=== PATIENT | female | born 1970 | race Caucasian/White ===

== ENCOUNTER → 2021-01-17 09:50 | Outpatient (BNVA) | payer OTHER, SELFPAY | PROVIDERS: PCP Internal Medicine; Visit Provider Internal Medicine Pulmonary Disease | DX: R06.00 Dyspnea, unspecified (principal); J44.9 Chronic obstructive pulmonary disease, unspecified; Z79.899 Other long term (current) drug therapy | CPT/HCPCS: 99212 ==

== ENCOUNTER → 2021-01-30 09:19 | Outpatient (REF) | payer OTHER, SELFPAY ==
--- NOTE | 2021-01-30 09:24 | CA_ITS ---
Transthoracic Echocardiogram Patient (Last, First, Middle): Torrie Townsend M Gender: Female Date of : 1970 Age: 50 Procedure Date: 01/30/2021 Procedure Type: Transthoracic Echocardiogram Location: OP Height: 170.18 cm Weight: 95.26 kg BSA: 2.06 m2 Heart Rate: bpm BP: 140 / 90 mmHg Library Director: COLLEEN Referring MD: José Miguel Landaverde MD Customs Brokerage Agent: Russ Hauser MD Symptoms: R06.00 - Dyspnea, unspecified Study Quality: Fair ECG Rhythm: Sinus Conclusions: - 1. Mildly reduced LV systolic function with LVEF of 45-50% with impaired relaxation filling pattern 2. Normal cardiac valvular Doppler 3. No gross pericardial effusion Findings Left Ventricle Normal left ventricular cavity size. There is normal left ventricular wall thickness. The left ventricular systolic function is mildly decreased. The visually estimated ejection fraction is between 45-50%. Spectral Doppler is indicative of an impaired relaxation filling pattern. E/E prime ratio is between 8 and 15 consistent with indeterminate filling pressures. Right Ventricle Normal right ventricular cavity size and systolic function. Atria Both atria are normal in size. There is lipomatous hypertrophy of the interatrial septum. There is no evidence of interatrial shunt. Aortic Valve The aortic valve structure and function is likely normal. There is no aortic valve stenosis. There is no aortic valve regurgitation. Mitral Valve Likely normal mitral valve structure and function. There is trace mitral valve regurgitation. There is no mitral valve stenosis. Pulmonic Valve The pulmonic valve was not well visualized. Tricuspid Valve The tricuspid valve was not well visualized. Tricuspid regurgitation envelope is inadequate for calculation of right ventricular systolic pressure. Great Vessels All visible segments of the aorta are normal in size. The pulmonary artery was not well visualized. Venous The inferior vena cava is normal in size and collapses greater than 50% with inspiration. Pericardium/Pleural There is no evidence of pericardial effusion. Prior Study Comparison No prior study available for comparison. Measurements M-Mode Liner Measurements Normals - Women/Men AOV Cusps: 1.90 1.5-2.6 cm/m2 2D Linear Measurements IVSd: 0.79 0.6-0.9/0.6-1.0 cm LVIDd: 5.12 3.9-5.3/4.2-5.9 cm LVIDd Index: 2.49 2.4-3.2/2.2-3.1 cm/m2 LVIDs: 3.45 2.0-3.6 cm LVPWd: 0.78 0.7-1.1 cm Ao Root: 2.90 2.1-3.5 cm LA Diam: 3.40 2.7-3.8/3.0-4.0 cm LAIDs Index: 1.65 1.5-2.3 cm/m2 LV Mass: 171.81 67-162/88-224 g LV Mass Index: 83.40 43-95/49-115 g/m2 LVOT Diam: 2.10 3.0+(-)1.3 cm 2D Systolic Function EF 4C: 50.20 >55% EF 2C: 51.50 >55% EF BiP: 49.80 >55% Mitral Valve MV Pk E: 0.69 MV PK A: 0.74 MV Decel Time: 127.00 E/A: 0.90 E'Lateral: 7.51 E'Medial: 5.11 E/E' Med: 13.50 E/E' Lat: 9.20 PHT: 37.00 MVA PHT: 5.95 Decel [place]: 5.46 Aortic Valve AoV Pk Noman: 0.96 AoV Mn Noman: 0.71 AoV VTI: 0.19 AoV Pk Grad: 4.00 Aov Mn Grad: 2.00 DEMETRIUS Cont.VTI: 2.81 LVOT LVOT Pk Noman: 0.78 LVOT Mn Noman: 0.54 LVOT VTI: 0.16 LVOT Pk Grad: 2.00 LVOT Mn Grad: 1.00 LVOT Diam: 2.10 LVOT Area: 3.46 Diastolic Function MV Pk E: 0.69 MV Pk A: 0.74 E/A: 0.90 E'Medial: 5.11 E/E' Med: 13.50 E' Laterial: 7.51 E/E' Lat: 9.20 Tricuspid Valve RA Press: 3.00 Great Vessels Aorta Ao Root-2D: 2.90 2.0-3.7 cm Ao Asc: 2.90 2.1-3.4 cm Pulmonary Valve PV Pk Noman: 0.90 Peak PV Grad: 3.00 Updated in Other Vendor System with Status of Final Russ Hauser MD electronically signed on 01/30/2021 10:22:10 AM with status of Final
== END ==
LOC: HO.CARD 09:19
PROVIDERS: PCP Internal Medicine; Visit Provider Internal Medicine Pulmonary Disease
DX: R06.00 Dyspnea, unspecified (principal)
CPT/HCPCS: 93306

== ENCOUNTER → 2021-02-06 09:06 | Outpatient (BNVA) | payer OTHER, SELFPAY | PROVIDERS: PCP Physician Assistant Medical; Visit Provider Internal Medicine Pulmonary Disease | DX: J44.9 Chronic obstructive pulmonary disease, unspecified (principal); I50.9 Heart failure, unspecified; R06.00 Dyspnea, unspecified | CPT/HCPCS: 99212 ==

== ENCOUNTER 2021-02-25 13:06 | Outpatient (REF) | payer OTHER, SELFPAY ==
[2021-02-25 14:23] LABS: Hemoglobin 14.9 g/dl (12.0-16.0); Mean Corpuscular HGB Conc 32.4 g/dl (31.0-35.0); Mean Corpuscular Hemoglobin 30.9 pg (27.0-33.0); Mean Corpuscular Volume 95.4 fL (80-98); Mean Platelet Volume 8.9 fL (9.4-12.3); Platelet Count 267 X10*3/uL (160-400); Red Blood Count 4.82 X10*6/uL (4.20-5.50); Red Cell Distribution Width 14.2 % (11.0-16.0); White Blood Count 14.5 X10*3/uL (4.8-10.8)
[2021-02-25 14:53] LABS: Prothrombin Time 11.1 SEC (9.9-13.0)
[2021-02-25 14:57] LABS: Anion Gap 12 (12-20); Blood Urea Nitrogen 10 mg/dL (9-16); Calcium 10.2 mg/dL (8.4-10.2); Carbon Dioxide 29 mmol/L (22-29); Chloride 102 mmol/L (96-108); Estimated Glomerular Filt Rate > 60; Glucose Random 94 mg/dL (60-115); Potassium 4.4 mmol/L (3.3-5.1); Sodium 139 mmol/L (135-145)
== END 2021-02-25 13:07 | disposition home or self-care (01) ==
LOC: HO.LAB 13:06
PROVIDERS: PCP Physician Assistant Medical; Referring Provider Internal Medicine Pulmonary Disease; Visit Provider Internal Medicine Cardiovascular Disease
DX: J44.9 Chronic obstructive pulmonary disease, unspecified (principal); F17.210 Nicotine dependence, cigarettes, uncomplicated; Z79.899 Other long term (current) drug therapy
CPT/HCPCS: 36415; 80048; 85027; 85610; 93005; 99202

== ENCOUNTER → 2021-03-18 09:43 | Outpatient (BNVA) | payer OTHER, SELFPAY | PROVIDERS: PCP Physician Assistant Medical; Visit Provider Internal Medicine Pulmonary Disease ==

== ENCOUNTER → 2021-04-07 13:02 | Outpatient (BNVA) | payer OTHER, SELFPAY | PROVIDERS: PCP Physician Assistant Medical; Referring Provider Physician Assistant Medical; Visit Provider Internal Medicine Cardiovascular Disease | DX: J44.9 Chronic obstructive pulmonary disease, unspecified (principal); R06.00 Dyspnea, unspecified | CPT/HCPCS: 99212 ==

== ENCOUNTER → 2021-05-20 15:38 | Outpatient (BNVA) | payer OTHER, SELFPAY | PROVIDERS: PCP Physician Assistant Medical; Visit Provider Internal Medicine Pulmonary Disease | DX: J44.9 Chronic obstructive pulmonary disease, unspecified (principal); Z99.81 Dependence on supplemental oxygen | CPT/HCPCS: 99212 ==

== ENCOUNTER 2021-05-20 16:06 | Inpatient (IN) | payer OTHER, SELFPAY ==
--- NOTE | ~2021-05-20 | XR_ITS ---
EXAMINATION: XR CHEST CLINICAL INFORMATION: Dyspnea COMPARISON: Chest 04/27/2009 TECHNIQUE: Frontal view of the chest was obtained. FINDINGS: The lungs are expanded with mild blunting of left CP angle and patchy opacity left lung base suggestive of infiltrate/scarring or atelectasis. Rest of lungs are clear. The heart size and pulmonary vascularity is normal. No gross bony abnormality seen. XR/XR chest 1V IMPRESSION: Expanded lungs with patchy infiltrate/atelectasis or scarring left lung base. These findings are new since 2008.
--- NOTE | ~2021-05-20 | CT_ITS ---
EXAMINATION: CT ANGIOGRAM OF THE CHEST WITH AND WITHOUT CONTRAST (CT PULMONARY ANGIOGRAM FOR PE) CLINICAL INFORMATION: Reason for Exam worsening SOB. r/o PE COMPARISON: Chest x-ray May 20, 2021 TECHNIQUE: Prior to contrast administration, noncontrast localization images were obtained. Subsequently, multidetector volumetric imaging was performed from the thoracic inlet to below the diaphragms following the administration of 71 mL Omnipaque 350 intravenous contrast. No contrast reaction reported Sagittal, coronal, and MIP oblique sagittal reformatted images were obtained on the CT workstation, uploaded to PACS, and reviewed. This CT examination was performed using dose optimization techniques as appropriate, variously including the following: *Automated exposure control *Adjustment of mA and/or kV according to patient size (this includes techniques or standardized protocols for targeted exams where dose is matched to indication/reason for exam; i.e. extremities or head) *Use of iterative reconstruction technique Total exam dose-length product 356 mGy-cm FINDINGS: QUALITY OF STUDY/CONTRAST BOLUS: Satisfactory. PULMONARY ARTERIES: No central or segmental pulmonary emboli. THORACIC AORTA: No aneurysm or dissection. LUNG: Patchy airspace opacities at the left lung base. Right lung is normally aerated. No suspicious lung nodules. PLEURA: No pleural effusion or pneumothorax. MEDIASTINUM: Normal heart size. No pericardial effusion. No hilar or mediastinal lymphadenopathy. No evidence of septal bowing or right heart strain. CHEST WALL/AXILLA: No axillary or internal mammary lymphadenopathy. OSSEOUS STRUCTURES: No acute or suspicious osseous abnormality. Multilevel degenerative spondylosis of the dorsal spine. UPPER ABDOMEN: Unremarkable. No reflux of contrast into the hepatic veins to suggest elevated right heart pressures. CT/CT angio chest PE protocol IMPRESSION: 1. No evidence of pulmonary embolism. 2. Patchy pleural-parenchymal airspace opacities in the left lower lobe. VTE: negative
[2021-05-20 16:19] VITALS: BP 146/99; PULSE 96; RESP 22; TEMP 36.9; O2SAT 98; BMI 32.8
--- NOTE | 2021-05-20 16:25 | ECG_ITS ---
Test Reason : DYSPNEA Blood Pressure : / mmHG Vent. Rate : 087 BPM Atrial Rate : 087 BPM P-R Int : 170 ms QRS Dur : 086 ms QT Int : 370 ms P-R-T Axes : 061 051 026 degrees QTc Int : 445 ms Poor data quality Normal sinus rhythm Nonspecific ST abnormality Abnormal ECG Heart rate has increased Referred By: Generic ED Physician Electronically Signed By:RAYO SALTER MD
[2021-05-20 16:55] LABS: MANUAL DIFF FLAG NO
[2021-05-20 16:59] LABS: Basophils Absolute Auto 0.1 X10*3/uL (0.0-0.2); Basophils Percent Auto 0.4 % (0-2); Eosinophils Absolute Auto 0.1 X10*3/uL (0.0-0.4); Eosinophils Percent Auto 1.1 % (0-4); Hemoglobin 13.2 g/dl (12.0-16.0); Imm Gran Abs Auto 0.66 X10*3/uL (0.00-0.03); Lymphocytes Absolute Auto 4.1 X10*3/uL (1.2-4.9); Lymphocytes Percent Auto 30.9 % (20-40); Mean Corpuscular HGB Conc 32.2 g/dl (31.0-35.0); Mean Corpuscular Hemoglobin 30.9 pg (27.0-33.0); Mean Platelet Volume 9.3 fL (9.4-12.3); Monocytes Absolute Auto 0.9 X10*3/uL (0.1-1.2); Monocytes Percent Auto 6.8 % (2-11); Neutrophils Absolute Auto 7.3 X10*3/uL (2.0-8.3); Neutrophils Percent Auto 55.8 % (45-73); Platelet Count 392 X10*3/uL (160-400); Red Blood Count 4.27 X10*6/uL (4.20-5.50); Red Cell Distribution Width 13.8 % (11.0-16.0); White Blood Count 13.1 X10*3/uL (4.8-10.8)
[2021-05-20 17:12] LABS: Anion Gap 13 (12-20); Blood Urea Nitrogen 19 mg/dL (9-16); Calcium 9.4 mg/dL (8.4-10.2); Carbon Dioxide 26 mmol/L (22-29); Chloride 103 mmol/L (96-108); Creatinine Clr Calc Pharmacy 98.3; Estimated Glomerular Filt Rate > 60; Glucose Random 87 mg/dL (60-115); Potassium 4.3 mmol/L (3.3-5.1); Sodium 138 mmol/L (135-145)
[2021-05-20] MEDS: Albuterol/Iprat 2.5/0.5MG 3 ML AMPUL.NEB INHALE ×3 (17:16→20:14)
[2021-05-20 17:17] VITALS: PULSE 84; O2SAT 97
[2021-05-20 17:18] LABS: B Type Natriuretic Peptide 25 pg/mL (<100); Troponin-I High Sensitivity 3.9 ng/L (<3.5-17.0)
--- NOTE | 2021-05-20 17:59 | ED_ITS ---
HPI - SOB/Dyspnea General Chief Complaint: Dyspnea Stated Complaint: SoB, Difficulty Breathing Time Seen by Provider: 05/20/21 16:45 Source: patient Mode of arrival: ambulatory History of Present Illness HPI Narrative: 51-year-old female with a past medical history of HIV, B12 deficiency, PTSD, seizures, spinal cord stimulator, 30+ pack-year smoking, dyspnea on exertion, COPD on chronic 3L NC, Recently discharged from [facility] for acute COPD exacerbation/pneumonia discharged on 4L NC, saw impregnation operator today and sent to ED for admission secondary to increased/worsening SOB. Patient reports increased dyspnea, SOB, nonproductive cough times multiple days, also reports near syncopal episode last night where got lightheaded secondary to coughing and hit head on dresser, denies LOC. Denies headache, nausea, vomiting, since incident. Denies taking anticoagulation. Denies fever, chills, abdominal pain, LE edema, calf pain, hi story of blood clots, CP Is not vaccinated for COVID-19 MD elicited complaint: shortness of breath and cough Related Data Home Medications Medication Instructions Recorded Confirmed aripiprazole 2 mg tablet 4 mg PO DAILY 01/17/21 05/20/21 [id number] 1 - 2 cap PO DAILY PRN 01/17/21 05/20/21 50 mg-325 mg-40 mg capsule clonazepam 1 mg tablet 1 mg PO TID PRN 01/17/21 05/20/21 divalproex 500 mg tablet,delayed 1,000 mg PO BID 01/17/21 05/20/21 release donepezil 5 mg tablet 5 mg PO BEDTIME 01/17/21 05/20/21 furosemide 20 mg tablet 20 mg PO DAILY PRN 01/17/21 05/20/21 gabapentin 800 mg tablet 800 mg PO TID 01/17/21 05/20/21 ipratropium 0.5 mg-albuterol 3 mg 3 ml INHALATION QID 01/17/21 05/20/21 (2.5 mg base)/3 mL nebulization soln naproxen 500 mg tablet 500 mg PO BID 01/17/21 05/20/21 omeprazole 20 mg capsule,delayed 20 mg PO DAILY@0630 01/17/21 05/20/21 release topiramate 100 mg tablet 100 mg PO BID 01/17/21 05/20/21 budesonide 3 mg 6 mg PO DAILY 05/20/21 05/20/21 capsule,delayed,extended release cyanocobalamin (vitamin B-12) 1,000 mcg IM QMONTH 05/20/21 05/20/21 1,000 mcg/mL injection solution duloxetine 60 mg capsule,delayed 1 cap PO DAILY 05/20/21 05/20/21 release elviteg 150 mg-cob 150 mg-emtricit 1 tab PO DAILY 05/20/21 05/20/21 200 mg-tenofo alafenam 10 mg tablet (Genvoya) Previous Rx's Medication Instructions Recorded theophylline 400 mg 400 mg PO DAILY 30 Days #30 tab 03/18/21 tablet,extended release 24 hr Allergies Allergy/AdvReac Type Severity Reaction Status Date / Time levetiracetam [From [facility]] Allergy Unknown ANAPHYLAXIS Verified 05/20/21 16:19 prednisone Allergy Unknown Verified 05/20/21 16:19 aspirin [ASPIRIN] AdvReac Mild Ringing in Verified 05/20/21 16:19 ears Review of Systems Review of Systems: Constitutional: No Fever, No Chills, No Fatigue, No Malaise ENT/Mouth: No Ear Pain, No Nasal Congestion, No sore throat Eyes: No No Redness, No Vision Changes Cardiovascular: No Chest Pain, + SOB, + Dyspnea on Exertion, No Orthopnea, No Edema, No Palpitations Respiratory: + Cough, No Sputum, + Wheezing, No Smoke Exposure, + Dyspnea Gastrointestinal: No Nausea, No Vomiting, No Abdominal pain Genitourinary: No Dysuria, No Urinary Frequency, No Hematuria, No Flank Pain, No Urinary Flow Changes Musculoskeletal: No joint pain, No Myalgias, No Joint Swelling Skin: + Skin Lesions, No rash Neuro: No Weakness, No Numbness, No Paresthesias, No Loss of Consciousness, + lightheadedness (resolved), No Headache Yes all other systems are reviewed and are negative Neurologic: Denies Abnormal speech present [facility] Past Medical History Attestation statement: The following information was validated with the patient. Medical History (Updated 05/20/21 @ 19:27 by Ry Tracey MD) AIDS B12 deficiency Back pain with history of spinal surgery C. difficile diarrhea Carpal tunnel syndrome Chronic airway obstruction Dyspnea on effort HIV (human immunodeficiency virus infection) Lung nodule Migraines Pneumonia PTSD (post-traumatic stress disorder) Seizures Spinal cord stimulator status Supplemental oxygen dependent Surgical History H/O: hysterectomy History of appendectomy History of lung surgery Family History Family History Father Hx of heart artery stent Maternal Grandmother CHF (congestive heart failure) Social History Social History (Updated 04/07/21 @ 13:28 by MELISSA Martinez) Patient Tobacco Use Status: Current everyday Tobacco user Tobacco use type: Cigarette Cigarettes Per Day: 5 Years Smoked: 35+ Substance Use Type: Marijuana Advance Directives: No Advance Directives Information Provided: Yes Patient : No Physical Exam Vital Signs: Vital Signs: Last Vital Signs Temp 98.4 F 05/20/21 16:19 Pulse 89 05/20/21 19:17 Resp 21 H 05/20/21 19:17 BP 138/84 05/20/21 19:17 Pulse Ox 96 05/20/21 19:17 Oxygen Flow Rate 4 05/20/21 16:19 Body Mass Index 32.8 Const: General: cooperative Orientation/consciousness: patient oriented x3 Limitations: no limitations HENMT: Other: +hematoma to L frontal forehead with mild tenderness to palpation. No appreciable skull depression Ears: hearing grossly normal bilaterally General nose exam: Normal external nose present Face and sinus: Yes normal facial exam Eyes: General: appearance normal, both eyes and all related structures EOM: EOMs intact bilaterally Neck: Neck: Yes normal visual inspection and Yes no meningeal signs Resp: Effort & Inspection: tachypneic Auscultation: wheezes expiratory wheezes, inspiratory wheezes and throughout Cardio: Rate: regular rate Heart sounds: S1 normal heart sound present and S2 normal heart sound present GI: Inspection: Yes normal to inspection Palpation (GI): Soft to palpation and nontender Skin: Rashes: no rashes Wounds: no wounds Neuro: General: patient oriented x3, tone normal, moves all extremities, no meningeal signs, no focal motor deficits and CN's II-XI intact bilaterally Cranial nerves: Yes CN's II-XII intact bilaterally and Yes Bilaterally intact EOM present Cognition (Neuro): normal cognition Speech: No Abnormal speech present Gait exam (Neuro): Normal gait present Motor exam (neuro): 5/5 motor strength present throughout and Pronator motor function not present C oordination: [id number] test normal Romberg Test: Negative Extrem: General: Yes normal to inspection and Yes no pedal edema Course Course Course Narrative: -1800--leukocytosis of 13.1 however patient is currently on a p.o. outpatient steroids, low concern for severe sepsis -troponin 3.9, BNP 25 -1812--XR chest 1V IMPRESSION: Expanded lungs with patchy infiltrate/atelectasis or scarring left lung base. These findings are new since 2008. >> empiric Zosyn ordered -still have not obtained records from [facility], unclear if infiltrate is subacute/new or old, avoiding 30mg/kg IVF secondary to respiratory status. > plan for admission MDM - SOB/Dyspnea MDM Narrative Medical decision making narrative: 51-year-old female with a past medical history of HIV, B12 deficiency, PTSD, seizures, spinal cord stimulator, 30+ pack-year smoking, dyspnea on exertion, COPD on chronic 3L NC, Recently dis charged from [facility] for acute COPD exacerbation/pneumonia discharged on 4L NC, saw impregnation operator today and sent to ED for admission secondary to increased/worsening SOB. On exam tachypneic, insp/exp wheezing noted throughout, no pedal edema, no focal neuro deficits. Concern for COPD exacerb ation vs pneumonia vs viral syndrome/COVID-19. Lower concern for ACS, CHF, or PE Plan: EKG, labs, CXR, COVID-19 testing, DuoNeb, magnesium, Solu-Medrol, anticipated admission. A concern for severe sepsis is likely the patient has chronic illness Medical Records Attestation: I reviewed the patient's medical records. Lab Data Attestation: I reviewed the patient's lab results. Result diagrams: 05/20/21 16:52 05/20/21 16:52 Labs: Lab Results 05/20/21 05/20/21 05/20/21 Range/Units 16:52 16:52 16:52 WBC 13.1 H (4.8-10.8) X10*3/uL RBC 4.27 (4.20-5.50) X10*6/uL Hgb 13.2 (12.0-16.0) g/dl Hct 41.0 (37-47) % MCV 96.0 (80-98) fL MCH 30.9 (27.0-33.0) pg MCHC 32.2 (31.0-35.0) g/dl RDW 13.8 (11.0-16.0) % Plt Count 392 D (160-400) X10*3/uL MPV 9.3 L (9.4-12.3) fL Immature Gran % (Auto) 5.0 H (0.0-0.4) % Neut % (Auto) 55.8 (45-73) % Lymph % (Auto) 30.9 (20-40) % [place] % (Auto) 6.8 (2-11) % Eos % (Auto) 1.1 (0-4) % Baso % (Auto) 0.4 (0-2) % Lymph # (Auto) 4.1 (1.2-4.9) X10*3/uL [place] # (Auto) 0.9 (0.1-1.2) X10*3/uL Eos # (Auto) 0.1 (0.0-0.4) X10*3/uL Baso # (Auto) 0.1 (0.0-0.2) X10*3/uL Abs Immat Gran (auto) 0.66 H (0.00-0.03) X10*3/uL Absolute Neuts (auto) 7.3 (2.0-8.3) X10*3/uL Absolute Nucleated RBC 0.000 (0.0-0.012) X10*3/uL Nucleated RBC % (auto) 0.0 (0.0-0.2) /100WBC Sodium 138 (135-145) mmol/L Potassium 4.3 (3.3-5.1) mmol/L Chloride 103 (96-108) mmol/L Carbon Dioxide 26 (22-29) mmol/L Anion Gap 13 (12-20) BUN 19 H D (9-16) mg/dL Creatinine 0.82 (0.5-1.4) mg/dL Estim Creat Clear Calc 98.3 Estimated GFR > 60 Random Glucose 87 (60-115) mg/dL Lactic Acid (0.5-2.0) mmol/L Calcium 9.4 D (8.4-10.2) mg/dL Magnesium 2.0 (1.6-2.6) mg/dL Total Bilirubin < 0.2 (0.0-1.0) mg/dL Direct Bilirubin < 0.2 (0.0-0.5) mg/dL AST 12 (5-31) U/L ALT 17 (0-31) U/L Alkaline Phosphatase 83 (39-117) U/L Troponin I High Sens 3.9 (<3.5-17.0) ng/L B-Natriuretic Peptide 25 (<100) pg/mL Total Protein 6.9 (6.5-8.0) g/dL Albumin 4.2 (3.5-5.0) g/dL COVID-19 (LOBO) (Negative) COVID-19 Clin Com 05/20/21 05/20/21 Range/Units 18:48 18:48 WBC (4.8-10.8) X10*3/uL RBC (4.20-5.50) X10*6/uL Hgb (12.0-16.0) g/dl Hct (37-47) % MCV (80-98) fL MCH (27.0-33.0) pg MCHC (31.0-35.0) g/dl RDW (11.0-16.0) % Plt Count (160-400) X10*3/uL MPV (9.4-12.3) fL Immature Gran % (Auto) (0.0-0.4) % Neut % (Auto) (45-73) % Lymph % (Auto) (20-40) % [place] % (Auto) (2-11) % Eos % (Auto) (0-4) % Baso % (Auto) (0-2) % Lymph # (Auto) (1.2-4.9) X10*3/uL [place] # (Auto) (0.1-1.2) X10*3/uL Eos # (Auto) (0.0-0.4) X10*3/uL Baso # (Auto) (0.0-0.2) X10*3/uL Abs Immat Gran (auto) (0.00-0.03) X10*3/uL Absolute Neuts (auto) (2.0-8.3) X10*3/uL Absolute Nucleated RBC (0.0-0.012) X10*3/uL Nucleated RBC % (auto) (0.0-0.2) /100WBC Sodium (135-145) mmol/L Potassium (3.3-5.1) mmol/L Chloride (96-108) mmol/L Carbon Dioxide (22-29) mmol/L Anion Gap (12-20) BUN (9-16) mg/dL Creatinine (0.5-1.4) mg/dL Estim Creat Clear Calc Estimated GFR Random Glucose (60-115) mg/dL Lactic Acid 0.6 (0.5-2.0) mmol/L Calcium (8.4-10.2) mg/dL Magnesium (1.6-2.6) mg/dL Total Bilirubin (0.0-1.0) mg/dL Direct Bilirubin (0.0-0.5) mg/dL AST (5-31) U/L ALT (0-31) U/L Alkaline Phosphatase (39-117) U/L Troponin I High Sens (<3.5-17.0) ng/L B-Natriuretic Peptide (<100) pg/mL Total Protein (6.5-8.0) g/dL Albumin (3.5-5.0) g/dL COVID-19 (LOBO) Negative (Negative) COVID-19 Clin Com See Note ECG Data Attestation: I personally reviewed and interpreted this ECG as follows: ECG interpretation date: 05/20/21 ECG interpretation time: 17:11 Interpretation: EKG normal sinus rhythm Rate of 87 QTC 445 Nonischemic, no STEMI Critical Care Time Critical Care Time Critical Care Time: Yes Total Critical Care Time: 30 Attestation: Critical care time was spent evaluating patient, reviewing chart, reviewing labs, reviewing imaging, and re-evaluating patient. Discharge Plan Discharge Clinical Impression: Acute exacerbation of chronic obstructive pulmonary disease Patient Disposition: Admitted As Inpatient
[2021-05-20 18:13] LABS: Alanine Aminotransferase 17 U/L (0-31); Albumin Level 4.2 g/dL (3.5-5.0); Alkaline Phosphatase 83 U/L (39-117); Aspartate Amino Transferase 12 U/L (5-31); Bilirubin Direct < 0.2 mg/dL (0.0-0.5); Bilirubin Total < 0.2 mg/dL (0.0-1.0); Total Protein 6.9 g/dL (6.5-8.0)
[2021-05-20] MEDS: methylPREDNISolone Sod Succ 125 MG/2 ML VIAL IVPUSH (18:15)
[2021-05-20] MEDS: Magnesium Sulfate/H2O 2 GM/50 ML PIGGYBACK IV (18:16)
--- NOTE | 2021-05-20 18:17 | PHA.MEDREC ---
Pharmacy Consult ? Medication Reconciliation Pharmacy has completed the medication reconciliation. Spoke with patient in ED. Pt states she has not taken any of her psych medications (Abilify, Depakote, cymbalta, topiramate) in a few weeks because they are making her feel sick, she has only been taking her clonazepam. Pt reports being on Vitamin B12 injections monthly and was due for an injection a few months ago. She says she is on Donepzil for her memory but has not filled since october. Budesonide is a new medication prescribed and picked up from the pharmacy on 05/19/21.
[2021-05-20 18:42] VITALS: PULSE 84; O2SAT 100
--- NOTE | 2021-05-20 19:10 | PC.NURSE ---
REPORT FROM KOKO AT 19:30, PT HERE FOR DYSPNEA, PROBABLE ADMIT.
[2021-05-20 19:16] LABS: COVID-19 Test Negative (Negative)
[2021-05-20 19:17] VITALS: BP 138/84; PULSE 89; RESP 21; O2SAT 96
[2021-05-20 19:18] LABS: Lactic Acid 0.6 mmol/L (0.5-2.0)
--- NOTE | 2021-05-20 19:26 | P.HPHOSP_ITS ---
History of Present Illness Date of Service: 05/20/21 Chief Complaint: Shortness of breath 51-year-old female with a past medical history COPD, chronic respiratory failure on 4 L of home oxygen, history of HIV, seizures, migraine headaches, history spinal cord stimulator, history of C diff infection, anxiety, depression, recent admission to the [facility] for pneumonia/COPD exacerbation- discharged about 10 days ago presented to the hospital today with a chief complaint shortness of breath. Patient reported that remove the discharge from the [facility] she was treated for pneumonia on the left lower lobe, her oxygen requirement has been increased from 2-4 L at the time of the discharge; today she had a follow-up visit with the pulmonology Clinic where he was noted to be visibly short of ki th; subsequently sent to the ER for further evaluation. Patient denies any chest pain palpitations lightheadedness or dizziness. Complains of chronic cough, unchanged, denies any fevers and chills. Denies any numbness tingling or focal weakness. Denies any GI or symptoms. Review of all other systems is negative except mentioned above ER course: Per ER team patient noted to be visibly short of breath, saturating 93% on 4 L of oxygen, chest x-ray showed left lower lobe atelectasis/infiltrate-given Zosyn; given nebulizations and Solu-Medrol. Admitted to the hospital for further management. [facility] Medical History (Updated 05/20/21 @ 19:27 by Ry Tracey MD) AIDS B12 deficiency Back pain with history of spinal surgery C. difficile diarrhea Carpal tunnel syndrome Chronic airway obstruction Dyspnea on effort HIV (human immunodeficiency virus infection) Lung nodule Migraines Pneumonia PTSD (post-traumatic stress disorder) Seizures Spinal cord stimulator status Supplemental oxygen dependent Family History Father Hx of heart artery stent Maternal Grandmother CHF (congestive heart failure) Pertinent family history: As mentioned above Surgical History H/O: hysterectomy History of appendectomy History of lung surgery Social History (Updated 04/07/21 @ 13:28 by MELISSA Martinez) Patient Tobacco Use Status: Current everyday Tobacco user Tobacco use type: Cigarette Cigarettes Per Day: 5 Years Smoked: 35+ Substance Use Type: Marijuana Advance Directives: No Advance Directives Information Provided: Yes Patient : No Meds Allergies Allergy/AdvReac Type Severity Reaction Status Date / Time levetiracetam [From [facility]] Allergy Unknown ANAPHYLAXIS Verified 05/20/21 16:19 prednisone Allergy Unknown Verified 05/20/21 16:19 aspirin [ASPIRIN] AdvReac Mild Ringing in Verified 05/20/21 16:19 ears Active Medications: Current Medications Acetaminophen (Acetaminophen 325 Mg Tablet) 650 mg PO Q6H PRN PRN Reason: Pain, Mild (Pain Scale 1-3) Azithromycin (Azithromycin 500 Mg Tablet) 500 mg PO Q24H [facility] Enoxaparin Sodium (Enoxaparin Sodium 40 Mg/0.4 Ml Syringe) 40 mg SUBCUT Q24H [facility] Sodium Chloride (Ns) 500 mls @ 999 mls/hr IV .Q31M [facility] Stop: 05/20/21 19:45 Melatonin (Melatonin 3 Mg Tablet) 6 mg PO BEDTIME PRN PRN Reason: Insomnia Methylprednisolone Sodium Succinate (Methylprednisolone Sod Succ 125 Mg/2 Ml Vial) 60 mg IVPUSH Q8H [facility] Morphine Sulfate (Morphine Sulfate 4 Mg/Ml Cartridge) 1 mg IVPUSH Q4H PRN; Protocol PRN Reason: Pain, SOB Pharmacy Consult (Consult Rx Perform Med Rec) 1 each MISCELLANE ONCE PRN PRN Reason: Consult order Pharmacy Consult (Consult Rx Perform Med Rec) 1 each MISCELLANE ONCE PRN PRN Reason: Consult order Senna (Sennosides 8.6 Mg Tablet) 17.2 mg PO BEDTIME PRN PRN Reason: Constipation Sodium Chloride (0.9 % Sodium Chloride Flush 3 Ml Syringe) 3 ml IVFLUSH QSHIFT [facility] Home Medications Medication Instructions Recorded Confirmed Last Taken Type aripiprazole 2 mg tablet 4 mg PO DAILY 01/17/21 05/20/21 Unknown History gmefnciede-bcnawkgeegmjj-jjaaofbi 1 - 2 cap PO DAILY PRN 01/17/21 05/20/21 Unknown History 50 mg-325 mg-40 mg capsule clonazepam 1 mg tablet 1 mg PO TID PRN 01/17/21 05/20/21 Unknown History divalproex 500 mg tablet,delayed 1,000 mg PO BID 01/17/21 05/20/21 Unknown History release donepezil 5 mg tablet 5 mg PO BEDTIME 01/17/21 05/20/21 Unknown History furosemide 20 mg tablet 20 mg PO DAILY PRN 01/17/21 05/20/21 Unknown History gabapentin 800 mg tablet 800 mg PO TID 01/17/21 05/20/21 05/20/21 History ipratropium 0.5 mg-albuterol 3 mg 3 ml INHALATION QID 01/17/21 05/20/21 05/20/21 History (2.5 mg base)/3 mL nebulization soln naproxen 500 mg tablet 500 mg PO BID 01/17/21 05/20/21 05/20/21 History omeprazole 20 mg capsule,delayed 20 mg PO DAILY@0630 01/17/21 05/20/21 05/20/21 History release topiramate 100 mg tablet 100 mg PO BID 01/17/21 05/20/21 Unknown History budesonide 3 mg 6 mg PO DAILY 05/20/21 05/20/21 Unknown History capsule,delayed,extended release cyanocobalamin (vitamin B-12) 1,000 mcg IM QMONTH 05/20/21 05/20/21 Unknown History 1,000 mcg/mL injection solution duloxetine 60 mg capsule,delayed 1 cap PO DAILY 05/20/21 05/20/21 Unknown History release elviteg 150 mg-cob 150 mg-emtricit 1 tab PO DAILY 05/20/21 05/20/21 05/20/21 History 200 mg-tenofo alafenam 10 mg tablet (Genvoya) Physical Exam Vital Signs and Narrative: Vital Signs: Last Vital Signs Temp 98.4 F 05/20/21 16:19 Pulse 89 05/20/21 19:17 Resp 21 H 05/20/21 19:17 BP 138/84 05/20/21 19:17 Pulse Ox 96 05/20/21 19:17 Oxygen Flow Rate 4 05/20/21 16:19 Body Mass Index 32.8 Results Labs CBC and Chem 7: 05/20/21 16:52 05/20/21 16:52 Labs: Laboratory Results - last 24 hr 05/20/21 05/20/21 05/20/21 16:52 16:52 16:52 MCV 96.0 MCH 30.9 MCHC 32.2 RDW 13.8 Plt Count 392 D MPV 9.3 L Immature Gran % (Auto) 5.0 H Neut % (Auto) 55.8 Lymph % (Auto) 30.9 [place] % (Auto) 6.8 Eos % (Auto) 1.1 Baso % (Auto) 0.4 Lymph # (Auto) 4.1 [place] # (Auto) 0.9 Eos # (Auto) 0.1 Baso # (Auto) 0.1 Abs Immat Gran (auto) 0.66 H Absolute Neuts (auto) 7.3 Absolute Nucleated RBC 0.000 Nucleated RBC % (auto) 0.0 Anion Gap 13 Estim Creat Clear Calc 98.3 Estimated GFR > 60 Random Glucose 87 Lactic Acid Calcium 9.4 D Magnesium 2.0 Total Bilirubin < 0.2 Direct Bilirubin < 0.2 AST 12 ALT 17 Alkaline Phosphatase 83 Troponin I High Sens 3.9 B-Natriuretic Peptide 25 Total Protein 6.9 Albumin 4.2 COVID-19 (LOBO) COVID-19 Clin Com 05/20/21 05/20/21 18:48 18:48 MCV MCH MCHC RDW Plt Count MPV Immature Gran % (Auto) Neut % (Auto) Lymph % (Auto) [place] % (Auto) Eos % (Auto) Baso % (Auto) Lymph # (Auto) [place] # (Auto) Eos # (Auto) Baso # (Auto) Abs Immat Gran (auto) Absolute Neuts (auto) Absolute Nucleated RBC Nucleated RBC % (auto) Anion Gap Estim Creat Clear Calc Estimated GFR Random Glucose Lactic Acid 0.6 Calcium Magnesium Total Bilirubin Direct Bilirubin AST ALT Alkaline Phosphatase Troponin I High Sens B-Natriuretic Peptide Total Protein Albumin COVID-19 (LOBO) Negative COVID-19 Clin Com See Note Imaging Radiologist's Impressions: Impressions Chest X-Ray 05/20/21 16:25 IMPRESSION: Expanded lungs with patchy infiltrate/atelectasis or scarring left lung base. These findings are new since 2008. Assessment and Plan (1) Dyspnea on exertion: Status: Acute (2) Supplemental oxygen dependent: Status: Acute (3) Acute exacerbation of chronic obstructive pulmonary disease: Status: Acute 51-year-old female with a past medical history COPD, chronic respiratory failure on 4 L of home oxygen, history of HIV, seizures, migraine headaches, history spinal cord stimulator, history of C diff infection, anxiety, depression, recent admission to the [facility] for pneumonia/COPD exacerbation-discharged about 10 days ago presented to the hospital today with a chief complaint shortness of breath. Noted to be in COPD exacerbation. Admitted for further management. Acute on chronic respiratory failure: In the setting of COPD exacerbation. On supplemental oxygen. COPD exacerbation: Nebulizations standing and p.r.n. Solu-Medrol 60 mg IV t.i.d. Supplemental oxygen with goal oxygen saturation 93% Pulmonology consult for recurrent COPD exacerbations. Patient has seen Dr. Lowe in the clinic today. Azithromycin Continue home inhalers and Patient on theophylline at home. CT angio chest pending Dyspnea on exertion: EKG nonischemic. Patient denies any chest pain. Troponin negative. ? Pneumonia: Patient recently finished antibiotic course for left lower lobe pneumonia. Cough has been unchanged as per the patient. Azithromycin for now. History of anxiety/depression: Continue home clonazepam/duloxetine. History of HIV: Continue home Genvoya History of seizures: Continue home Depakote, topiramate. Seizure precautions. Will defer to the pulmonology if theophylline needs to be continued GI prophylaxis: Ppi DVT prophylaxis: Lovenox Code status: Full code Quality Stroke Does the patient have a stroke diagnosis?: No VTE Prior VTE?: No VTE Risk Level:: Medical - moderate - high VTE Device Contraindication: Treatment Not Indicated VTE Drug Contraindication: N/A - Med Ordered
[2021-05-20] MEDS: Acetaminophen 325 MG TABLET 650 MG PO (19:43)
[2021-05-20] MEDS: 0.9 % Sodium Chloride 500 ML 999 ML IV (19:43)
[2021-05-20] MEDS: Piperacillin Sodium/Tazobactam 3.375 GM in 0.9 % Sodium Chloride 50 ML IV (19:44)
[2021-05-20 19:55] LABS: Venous Blood Gas Refer to POC result
[2021-05-20] MEDS: Morphine Sulfate 4 MG/ML CARTRIDGE 1 MG IVPUSH (19:55)
[2021-05-20 19:56] LABS: VBG Base Excess 4.4 mmol/L; VBG HCO3 30 mmol/L (22-26); VBG pCO2 48 mmHg; VBG pH 7.39 (7.32-7.43); VBG pO2 73 mmHg
[2021-05-20] MEDS: iohexoL 350 MG/ML 100 ML INFUS..BTL IV (20:09)
[2021-05-20 20:15] VITALS: PULSE 114; O2SAT 94
--- NOTE | 2021-05-20 20:33 | PC.NURSE ---
pt ambulatory to bathroom. pt eating meal brought by family.
[2021-05-20 22:00] VITALS: PULSE 86; RESP 22; O2SAT 97
--- NOTE | 2021-05-20 22:00 | PC.NURSE ---
PT IN LLR POSITION ON STRETCHER, ABLE TO FALL ASLEEP.
[2021-05-20] MEDS: Enoxaparin Sodium 40 MG/0.4 ML SYRINGE SUBCUT (22:02)
[2021-05-20] MEDS: Gabapentin 400 MG CAPSULE 800 MG PO (22:03)
[2021-05-20] MEDS: Topiramate 100 MG TABLET PO (22:03)
[2021-05-20] MEDS: Donepezil HCl 5 MG TABLET PO (22:03)
[2021-05-20] MEDS: Azithromycin 500 MG TABLET PO (22:03)
--- NOTE | 2021-05-20 22:31 | PC.NURSE ---
DIVALPROEX REFUSED BY PATIENT, PT STATES I CAN'T TAKE IT, IT BOTHERS MY STOMACH, ESPECIALLY WHEN I'M SICK.
[2021-05-21] VITALS (12 sets, daily range): BP systolic 111–151; BP diastolic 58–88; PULSE 69–110; RESP 17–22; TEMP 36.3–36.5; O2SAT 92–98
[2021-05-21] MEDS: methylPREDNISolone Sod Succ 125 MG/2 ML VIAL 60 MG IVPUSH ×3 (02:27→17:22)
[2021-05-21] MEDS: 0.9 % Sodium Chloride Flush 3 ML SYRINGE IVFLUSH ×3 (02:27→23:53)
[2021-05-21] MEDS: Morphine Sulfate 4 MG/ML CARTRIDGE 1 MG IVPUSH ×2 (02:27→09:07)
--- NOTE | 2021-05-21 04:25 | PC.NURSE ---
PT AMBULATORY TO BATHROOM, HAS PORTABLE O2 TANK. PT FEELS SHE NEEDS BREATHING TREATMENT, RT CALLED.
[2021-05-21 07:37] LABS: Hematocrit 42.1 % (37-47); Hemoglobin 13.4 g/dl (12.0-16.0); Mean Corpuscular HGB Conc 31.8 g/dl (31.0-35.0); Mean Corpuscular Hemoglobin 30.4 pg (27.0-33.0); Mean Corpuscular Volume 95.5 fL (80-98); Mean Platelet Volume 9.4 fL (9.4-12.3); Platelet Count 361 X10*3/uL (160-400); Red Blood Count 4.41 X10*6/uL (4.20-5.50); Red Cell Distribution Width 13.2 % (11.0-16.0); White Blood Count 11.2 X10*3/uL (4.8-10.8)
--- NOTE | 2021-05-21 07:54 | PC.NURSE ---
care assumed for this pt at 0700. pt resting comfortable in bed. awaiting meds from the pharmacy for am meds. plan for admission- pt denied having any questions at this time.
[2021-05-21] MEDS: Gabapentin 400 MG CAPSULE 800 MG PO ×2 (08:02→20:34)
[2021-05-21] MEDS: Albuterol/Iprat 2.5/0.5MG 3 ML AMPUL.NEB INHALE ×3 (08:06→20:58)
[2021-05-21 08:09] LABS: Atypical Lymph Absolute Manual 0.1 x10*3/uL; Atypical Lymphs Percent Manual 1 % (0-6); Band Neutrophils Percent 2 % (3-5); Lymphocytes Percent Manual 9 % (20-40); Monocytes Absolute Manual 0.1 X10*3/uL (0.0-1.2); Monocytes Percent Manual 1 % (2-11); Neutrophils Percent Manual 87 % (45-73)
[2021-05-21 08:10] LABS: Platelet Estimate NORMAL (NORMAL); Platelet Morphology Comment NORMAL; RBC Morphology NORMAL
[2021-05-21 08:12] LABS: Anion Gap 10 (12-20); Blood Urea Nitrogen 14 mg/dL (9-16); Calcium 9.2 mg/dL (8.4-10.2); Carbon Dioxide 27 mmol/L (22-29); Chloride 107 mmol/L (96-108); Creatinine Clr Calc Pharmacy 118.6; Estimated Glomerular Filt Rate > 60; Glucose Random 128 mg/dL (60-115); Potassium 4.6 mmol/L (3.3-5.1); Sodium 139 mmol/L (135-145)
[2021-05-21] MEDS: Morphine Sulfate 4 MG/ML CARTRIDGE 2 MG IVPUSH ×3 (12:19→20:41)
--- NOTE | 2021-05-21 15:17 | HO.PM.IMPN ---
Subjective Subjective Date of Service: 05/21/21 Interval History: cc: sob interval historyL still sob Cardiovascular Cardiovascular: Reports no additional cardiovascular complaints Gastrointestinal Gastrointestinal: Reports no additional gastrointestinal complaints Physical Exam Vital Signs: Vital Signs: Last Vital Signs Temp 98.4 F 05/20/21 16:19 Pulse 110 H 05/21/21 08:07 Resp 18 05/21/21 12:19 BP 133/72 05/21/21 02:25 Pulse Ox 93 05/21/21 06:13 Oxygen Flow Rate 4 05/20/21 16:19 Body Mass Index 32.8 General: AO X 3, no acute distress Resp: wheezes bilateral, no accessory muscles used CVS: S1,S2,RRR GI: soft, non tender, non distended Neuro: motor grossly intact, alert Psych: appropriate affect, appropriate insight Objective Data Active Medications Acetaminophen (Acetaminophen 325 Mg Tablet) 650 mg PO Q6H PRN PRN Reason: Pain, Mild (Pain Scale 1-3) Acetaminophen/Butalbital/Caffeine (Butalb/Acetamin/Caff 50/325/40 Tablet) 1 tab PO DAILY PRN PRN Reason: headache Albuterol/Ipratropium (Albuterol/Iprat 2.5/0.5mg 3 Ml Ampul.Neb) 3 ml INHALE RQID [facility] Last Admin: 05/21/21 13:30 Dose: Not Given Documented by: JOELLE Non-Admin Reason: Patient Asleep Aripiprazole (Aripiprazole 2 Mg Tablet) 4 mg PO DAILY [facility] Last Admin: 05/21/21 08:19 Dose: Not Given Documented by: EDITH Non-Admin Reason: Patient Refused Azithromycin (Azithromycin 500 Mg Tablet) 500 mg PO Q24H [facility] Last Admin: 05/20/21 22:03 Dose: 500 mg Documented by: BIANKA Clonazepam (Clonazepam 1 Mg Tablet) 1 mg PO TID PRN PRN Reason: Anxiety Cyanocobalamin (Cyanocobalamin (Vitamin B-12) 1,000 Mcg/Ml Vial) 1,000 mcg IM Q30D [facility] Last Admin: 05/21/21 08:19 Dose: Not Given Documented by: EDITH Non-Admin Reason: Patient Refused Divalproex Sodium (Divalproex Sodium 500 Mg Tablet.) 1,000 mg PO BID [facility] Last Admin: 05/21/21 08:19 Dose: Not Given Documented by: EDITH Non-Admin Reason: Patient Refused Donepezil HCl (Donepezil Hcl 5 Mg Tablet) 5 mg PO BEDTIME [facility] Last Admin: 05/20/21 22:03 Dose: 5 mg Documented by: BIANKA Duloxetine HCl (Duloxetine Hcl 60 Mg Capsule.) 60 mg PO DAILY [facility] Last Admin: 05/21/21 08:19 Dose: Not Given Documented by: EDITH Non-Admin Reason: Patient Refused Enoxaparin Sodium (Enoxaparin Sodium 40 Mg/0.4 Ml Syringe) 40 mg SUBCUT Q24H [facility] Last Admin: 05/20/21 22:02 Dose: 40 mg Documented by: BIANKA Furosemide (Furosemide 20 Mg Tablet) 20 mg PO DAILY PRN; Protocol PRN Reason: Edema Gabapentin (Gabapentin 400 Mg Capsule) 800 mg PO TID [facility] Last Admin: 05/21/21 08:02 Dose: 800 mg Documented by: EDITH Melatonin (Melatonin 3 Mg Tablet) 6 mg PO BEDTIME PRN PRN Reason: Insomnia Methylprednisolone Sodium Succinate (Methylprednisolone Sod Succ 125 Mg/2 Ml Vial) 60 mg IVPUSH Q8H [facility] Last Admin: 05/21/21 12:19 Dose: 60 mg Documented by: EDITH Morphine Sulfate (Morphine Sulfate 4 Mg/Ml Cartridge) 2 mg IVPUSH Q3H PRN; Protocol PRN Reason: Pain, SOB Last Admin: 05/21/21 12:19 Dose: 2 mg Documented by: EDITH Non-Formulary Medication (Budesonide) 6 mg PO DAILY [facility] Non-Formulary Medication (Gorvkvj-Qvj-Trmte-Tenof Alafen) 1 tab PO DAILY [facility] Omeprazole (Omeprazole 20 Mg Capsule.) 20 mg PO DAILY@0630 [facility] Last Admin: 05/21/21 08:19 Dose: Not Given Documented by: EDITH Non-Admin Reason: Patient Refused Pharmacy Consult (Consult Rx Perform Med Rec) 1 each MISCELLANE ONCE PRN PRN Reason: Consult order Pharmacy Consult (Consult Rx Perform Med Rec) 1 each MISCELLANE ONCE PRN PRN Reason: Consult order Senna (Sennosides 8.6 Mg Tablet) 17.2 mg PO BEDTIME PRN PRN Reason: Constipation Sodium Chloride (0.9 % Sodium Chloride Flush 3 Ml Syringe) 3 ml IVFLUSH QSHIFT [facility] Last Admin: 05/21/21 08:19 Dose: Not Given Documented by: EDITH Non-Admin Reason: Patient Refused Theophylline (Theophylline Anhydrous Er 400 Mg Tab.Er.24h) 400 mg PO DAILY [facility] Last Admin: 05/21/21 08:19 Dose: Not Given Documented by: EDITH Non-Admin Reason: Patient Refused Topiramate (Topiramate 100 Mg Tablet) 100 mg PO BID [facility] Last Admin: 05/21/21 08:20 Dose: Not Given Documented by: EDITH Non-Admin Reason: Patient Refused Labs CBC & Chem 7: 05/21/21 07:07 05/21/21 07:07 Labs: Laboratory Results - last 24 hr 05/20/21 05/20/21 05/20/21 16:52 16:52 16:52 MCV 96.0 MCH 30.9 MCHC 32.2 RDW 13.8 Plt Count 392 D MPV 9.3 L Immature Gran % (Auto) 5.0 H Neut % (Auto) 55.8 Lymph % (Auto) 30.9 [place] % (Auto) 6.8 Eos % (Auto) 1.1 Baso % (Auto) 0.4 Lymph # (Auto) 4.1 [place] # (Auto) 0.9 Eos # (Auto) 0.1 Baso # (Auto) 0.1 Abs Immat Gran (auto) 0.66 H Absolute Neuts (auto) 7.3 Absolute Nucleated RBC 0.000 Nucleated RBC % (auto) 0.0 Neutrophils % (Manual) Band Neutrophils % Lymphocytes % (Manual) Atypical Lymphs % (Man) Monocytes % (Manual) Abs Neuts (Manual) Lymphocytes # (Manual) Atyp Lymphs # (Manual) Monocytes # (Manual) Platelet Estimate Plt Morphology Comment RBC Morphology VBG pH VBG pCO2 VBG pO2 VBG HCO3 VBG O2 Saturation VBG Base Excess Anion Gap 13 Estim Creat Clear Calc 98.3 Estimated GFR > 60 Random Glucose 87 Lactic Acid Calcium 9.4 D Magnesium 2.0 Total Bilirubin < 0.2 Direct Bilirubin < 0.2 AST 12 ALT 17 Alkaline Phosphatase 83 Troponin I High Sens 3.9 B-Natriuretic Peptide 25 Total Protein 6.9 Albumin 4.2 COVID-19 (LOBO) COVID-19 Clin Com 05/20/21 05/20/21 05/20/21 18:48 18:48 19:50 MCV MCH MCHC RDW Plt Count MPV Immature Gran % (Auto) Neut % (Auto) Lymph % (Auto) [place] % (Auto) Eos % (Auto) Baso % (Auto) Lymph # (Auto) [place] # (Auto) Eos # (Auto) Baso # (Auto) Abs Immat Gran (auto) Absolute Neuts (auto) Absolute Nucleated RBC Nucleated RBC % (auto) Neutrophils % (Manual) Band Neutrophils % Lymphocytes % (Manual) Atypical Lymphs % (Man) Monocytes % (Manual) Abs Neuts (Manual) Lymphocytes # (Manual) Atyp Lymphs # (Manual) Monocytes # (Manual) Platelet Estimate Plt Morphology Comment RBC Morphology VBG pH 7.39 VBG pCO2 48 VBG pO2 73 VBG HCO3 30 H VBG O2 Saturation 95.0 VBG Base Excess 4.4 Anion Gap Estim Creat Clear Calc Estimated GFR Random Glucose Lactic Acid 0.6 Calcium Magnesium Total Bilirubin Direct Bilirubin AST ALT Alkaline Phosphatase Troponin I High Sens B-Natriuretic Peptide Total Protein Albumin COVID-19 (LOBO) Negative COVID-19 Clin Com See Note 05/21/21 05/21/21 07:07 07:07 MCV 95.5 MCH 30.4 MCHC 31.8 RDW 13.2 Plt Count 361 MPV 9.4 Immature Gran % (Auto) Cancelled Neut % (Auto) Cancelled Lymph % (Auto) Cancelled [place] % (Auto) Cancelled Eos % (Auto) Cancelled Baso % (Auto) Cancelled Lymph # (Auto) Cancelled [place] # (Auto) Cancelled Eos # (Auto) Cancelled Baso # (Auto) Cancelled Abs Immat Gran (auto) Cancelled Absolute Neuts (auto) Cancelled Absolute Nucleated RBC 0.000 Nucleated RBC % (auto) 0.0 Neutrophils % (Manual) 87 H Band Neutrophils % 2 L Lymphocytes % (Manual) 9 L Atypical Lymphs % (Man) 1 Monocytes % (Manual) 1 L Abs Neuts (Manual) 10.0 H Lymphocytes # (Manual) 1.0 Atyp Lymphs # (Manual) 0.1 Monocytes # (Manual) 0.1 Platelet Estimate NORMAL Plt Morphology Comment NORMAL RBC Morphology NORMAL VBG pH VBG pCO2 VBG pO2 VBG HCO3 VBG O2 Saturation VBG Base Excess Anion Gap 10 L Estim Creat Clear Calc 118.6 Estimated GFR > 60 Random Glucose 128 H Lactic Acid Calcium 9.2 Magnesium Total Bilirubin Direct Bilirubin AST ALT Alkaline Phosphatase Troponin I High Sens B-Natriuretic Peptide Total Protein Albumin COVID-19 (LOBO) COVID-19 Clin Com Assessment and Plan (1) Supplemental oxygen dependent: Status: Acute (2) COPD (chronic obstructive pulmonary disease): Status: Acute Assessment and Plan: 51F presented with sob Acute on chronic hypoxic respiratory failure secondary to COPD exacerbation IV steroids, bronchodilators, pulmonary follow-up azithromycin, theophylline CTA chest negative for pe anxiety/depression Continue home clonazepam/duloxetine. HIV Continue home Genvoya epilepsy Depakote, topiramate.? Seizure precautions. dvt prophylaxis - lovenox Quality Stroke Does the patient have a stroke diagnosis?: No VTE Prior VTE?: No VTE Risk Level:: Medical - moderate - high VTE Device Contraindication: Treatment Not Indicated VTE Drug Contraindication: N/A - Med Ordered
[2021-05-21] MEDS: Nicotine 14 MG PATCH.TD24 TRANSDERMA (18:32)
[2021-05-21] MEDS: Enoxaparin Sodium 40 MG/0.4 ML SYRINGE SUBCUT (20:31)
[2021-05-21] MEDS: Azithromycin 500 MG TABLET PO (20:32)
[2021-05-21] MEDS: Donepezil HCl 5 MG TABLET PO (20:33)
[2021-05-21] MEDS: clonazePAM 1 MG TABLET PO (20:42)
[2021-05-22] VITALS (11 sets, daily range): BP systolic 125–145; BP diastolic 66–89; PULSE 77–95; RESP 16–18; TEMP 36.1–36.6; O2SAT 93–98
[2021-05-22] MEDS: methylPREDNISolone Sod Succ 125 MG/2 ML VIAL 60 MG IVPUSH ×3 (02:50→18:30)
[2021-05-22] MEDS: Morphine Sulfate 4 MG/ML CARTRIDGE 2 MG IVPUSH ×5 (02:58→20:23)
[2021-05-22 06:16] LABS: Hemoglobin 13.1 g/dl (12.0-16.0); Mean Corpuscular HGB Conc 32.8 g/dl (31.0-35.0); Mean Corpuscular Hemoglobin 30.9 pg (27.0-33.0); Mean Corpuscular Volume 94.3 fL (80-98); Mean Platelet Volume 9.3 fL (9.4-12.3); Platelet Count 340 X10*3/uL (160-400); Red Blood Count 4.24 X10*6/uL (4.20-5.50); Red Cell Distribution Width 13.2 % (11.0-16.0); White Blood Count 16.9 X10*3/uL (4.8-10.8)
[2021-05-22 06:41] LABS: Anion Gap 12 (12-20); Blood Urea Nitrogen 17 mg/dL (9-16); Calcium 9.2 mg/dL (8.4-10.2); Carbon Dioxide 25 mmol/L (22-29); Chloride 107 mmol/L (96-108); Creatinine Clr Calc Pharmacy 127.9; Estimated Glomerular Filt Rate > 60; Glucose Fasting 129 mg/dL (60-99); Potassium 4.5 mmol/L (3.3-5.1); Sodium 139 mmol/L (135-145)
[2021-05-22] MEDS: Theophylline Anhydrous ER 400 MG TAB.ER.24H PO (08:15)
[2021-05-22] MEDS: Nicotine 14 MG PATCH.TD24 TRANSDERMA (08:15)
[2021-05-22] MEDS: Gabapentin 400 MG CAPSULE 800 MG PO ×3 (08:16→20:14)
[2021-05-22] MEDS: 0.9 % Sodium Chloride Flush 3 ML SYRINGE IVFLUSH ×2 (08:24→17:08)
[2021-05-22] MEDS: clonazePAM 1 MG TABLET PO ×2 (08:24→20:23)
[2021-05-22] MEDS: Albuterol/Iprat 2.5/0.5MG 3 ML AMPUL.NEB INHALE ×3 (08:26→19:52)
--- NOTE | 2021-05-22 09:44 | MHC.CM.PN ---
EMR REVIEWED, PT ADMITTED W/COPD EXAC, PT REPORTS SHE WAS AT HER PULMONOLIGIST AND THEY SENT HER TO ED, PT REPORTS SHE FEELS MUCH BETTER ON THE STEROIDS BUT AFTER SHE'S FINISHED W/THEM HER BREATHING GETS WORSE AGAIN, PT IS A&OX4, PT REPORTS HAVING A QUARRY WORKER THROUGH [employer] W/36 DAY HRS AND 28 NIGHT HRS, PT ALSO REPORTS LIVING W/TWO [employer] CHILDREN WHO TAKE GOOD CARE OF HER PT HAS AN UPDRAFT, CANE, WHEELED WALKER, POWER W/C AND TRANSFER WC, RAILS IN BR, AND A SHOWER CHAIR, PT WOULD LIKE VNA IF RECOMMENDED BY HOSPITALIST, PT VERIFIES PCP AND HCP. D/C PLAN: HOME W/RESUMP OF QUARRY WORKER HRS VS HOME W/NEW VNA AND RESUMP OF VNA, FAMILY FOR TRANSPORT. PCP: PAM HIGUERA W/[facility]
--- NOTE | 2021-05-22 11:03 | P.CONPL_ITS ---
History of Present Illness History of Present Illness Consult date: 05/22/21 Chief complaint: COPD exacerbation Narrative: This 51 years old female is admitted since yesterday, with increased shortness of breath and increased hypoxemia. In fact she was in the Pulmonary office to be seen by Dr. Landaverde on 05/20, but she was having moderate respiratory distress requiring increased oxygen supplementation and thus she was sent to the emergency room, she spent to the almost 24 hours in the emergency room and is now admitted to the regular floor for further management. Recently patient was admitted at in [facility], and treated for acute exacerbation of COPD plus pneumonia left lower lobe. She was discharged home only about 10 days ago and say is that since her discharge she has required oxygen by nasal cannula about 3-4 L/minute which is higher than her usual requirement. She did not have fever or chills or any chest pain. She continue to smoke. Past medical history includes to chronic HIV infection which is being treated with maintenance anti HIV regimen. She has history of seizure disorder, chronic back pain and has had a spinal stimulator for ongoing treatment. She suffers from chronic anxiety and depression. Her home medical regimen includes the DuoNeb updrafts Q 4-6 hours while awake, budesonide 3 mg po melissa ICS?LABA and she was also on theophylline tablets by mouth twice a day. I think because of insurance issues she has not been able to get appropriate ICS/LABA or LAMA inhalers for maintenance treatment. Review of Systems Review of Systems: Yes all other systems are reviewed and are negative Constitutional: Constitutional: Reports fatigue Eyes: Eyes: Reports no additional eye complaints ENT: Reports system reviewed and no additional complaints, except as documented Cardiovascular: Cardiovascular: Denies chest pain, Denies irregular heart rhythm, Denies leg edema and Reports dyspnea on exertion Respiratory: Respiratory: Reports as per HPI and Reports dyspnea on exertion Gastrointestinal: Gastrointestinal: Reports no additional gastrointestinal complaints Genitourinary: Genitourinary: Reports no additional female genitourinary complaints Musculoskeletal: Musculoskeletal: Reports back pain Integumentary/Breasts: Skin/Breast: Reports system reviewed and no additional complaints, except as docu Neurologic: Reports system reviewed and no additional complaints, except as documented Psychiatric: Psychiatric: Reports anxiety (Chronic) and Reports depression Endocrine: Endocrine: Reports fatigue [facility] Past Medical History Medical History (Updated 05/22/21 @ 11:15 by Maciel Albarran MD) AIDS B12 deficiency Back pain with history of spinal surgery C. difficile diarrhea Carpal tunnel syndrome Chronic airway obstruction Dyspnea on effort HIV (human immunodeficiency virus infection) Hypoxemia Lung nodule Migraines Pneumonia Pneumonia PTSD (post-traumatic stress disorder) Seizures Smoker Spinal cord stimulator status Supplemental oxygen dependent Family History Family History Father Hx of heart artery stent Maternal Grandmother CHF (congestive heart failure) Surgical History Surgical History H/O: hysterectomy History of appendectomy History of lung surgery Social History Social History (Updated 04/07/21 @ 13:28 by MELISSA Martinez) Household Members: Spouse and Children Housing: House Patient Tobacco Use Status: Current everyday Tobacco user Tobacco use type: Cigarette Cigarettes Per Day: 3 Years Smoked: 33 Second Hand Smoke Exposure: No Substance Use Type: Marijuana service: No Current occupational status: unemployed Meds Allergies Allergy/AdvReac Type Severity Reaction Status Date / Time levetiracetam [From [facility]] Allergy Unknown ANAPHYLAXIS Verified 05/20/21 16:19 prednisone Allergy Unknown Verified 05/20/21 16:19 aspirin [ASPIRIN] AdvReac Mild Ringing in Verified 05/20/21 16:19 ears Active Medications: Current Medications Acetaminophen (Acetaminophen 325 Mg Tablet) 650 mg PO Q6H PRN PRN Reason: Pain, Mild (Pain Scale 1-3) Acetaminophen/Butalbital/Caffeine (Butalb/Acetamin/Caff 50/325/40 Tablet) 1 tab PO DAILY PRN PRN Reason: headache Albuterol/Ipratropium (Albuterol/Iprat 2.5/0.5mg 3 Ml Ampul.Neb) 3 ml INHALE RQID [facility] Last Admin: 05/22/21 08:26 Dose: 3 ml Documented by: Aripiprazole (Aripiprazole 2 Mg Tablet) 4 mg PO DAILY [facility] Last Admin: 05/21/21 08:19 Dose: Not Given Documented by: Azithromycin (Azithromycin 500 Mg Tablet) 500 mg PO Q24H [facility] Last Admin: 05/21/21 20:32 Dose: 500 mg Documented by: Clonazepam (Clonazepam 1 Mg Tablet) 1 mg PO TID PRN PRN Reason: Anxiety Last Admin: 05/22/21 08:24 Dose: 1 mg Documented by: Cyanocobalamin (Cyanocobalamin (Vitamin B-12) 1,000 Mcg/Ml Vial) 1,000 mcg IM Q30D [facility] Last Admin: 05/21/21 08:19 Dose: Not Given Documented by: Divalproex Sodium (Divalproex Sodium 500 Mg Tablet.) 1,000 mg PO BID [facility] Last Admin: 05/21/21 20:33 Dose: Not Given Documented by: Donepezil HCl (Donepezil Hcl 5 Mg Tablet) 5 mg PO BEDTIME [facility] Last Admin: 05/21/21 20:33 Dose: 5 mg Documented by: Duloxetine HCl (Duloxetine Hcl 60 Mg Capsule.) 60 mg PO DAILY [facility] Last Admin: 05/21/21 08:19 Dose: Not Given Documented by: Enoxaparin Sodium (Enoxaparin Sodium 40 Mg/0.4 Ml Syringe) 40 mg SUBCUT Q24H [facility] Last Admin: 05/21/21 20:31 Dose: 40 mg Documented by: Furosemide (Furosemide 20 Mg Tablet) 20 mg PO DAILY PRN; Protocol PRN Reason: Edema Gabapentin (Gabapentin 400 Mg Capsule) 800 mg PO TID [facility] Last Admin: 05/22/21 08:16 Dose: 800 mg Documented by: Melatonin (Melatonin 3 Mg Tablet) 6 mg PO BEDTIME PRN PRN Reason: Insomnia Methylprednisolone Sodium Succinate (Methylprednisolone Sod Succ 125 Mg/2 Ml Via l) 60 mg IVPUSH Q8H [facility] Last Admin: 05/22/21 08:11 Dose: 60 mg Documented by: Morphine Sulfate (Morphine Sulfate 4 Mg/Ml Cartridge) 2 mg IVPUSH Q3H PRN; Protocol PRN Reason: Pain, SOB Last Admin: 05/22/21 08:11 Dose: 2 mg Documented by: Nicotine (Nicotine 14 Mg Patch.Td24) 14 mg TRANSDERMA DAILY [facility] Last Admin: 05/22/21 08:15 Dose: 14 mg Documented by: Non-Formulary Medication (Budesonide) 6 mg PO DAILY [facility] Non-Formulary Medication (Fkwfaeo-Pvj-Clpns-Tenof Alafen) 1 tab PO DAILY [facility] Omeprazole (Omeprazole 20 Mg Capsule.) 20 mg PO DAILY@0630 [facility] Last Admin: 05/22/21 06:30 Dose: Not Given Documented by: Pharmacy Consult (Consult Rx Perform Med Rec) 1 each MISCELLANE ONCE PRN PRN Reason: Consult order Pharmacy Consult (Consult Rx Perform Med Rec) 1 each MISCELLANE ONCE PRN PRN Reason: Consult order Senna (Sennosides 8.6 Mg Tablet) 17.2 mg PO BEDTIME PRN PRN Reason: Constipation Sodium Chloride (0.9 % Sodium Chloride Flush 3 Ml Syringe) 3 ml IVFLUSH QSHIFT [facility] Last Admin: 05/22/21 08:24 Dose: 3 ml Documented by: Theophylline (Theophylline Anhydrous Er 400 Mg Tab.Er.24h) 400 mg PO DAILY [facility] Last Admin: 05/22/21 08:15 Dose: 400 mg Documented by: Topiramate (Topiramate 100 Mg Tablet) 100 mg PO BID [facility] Last Admin: 05/21/21 20:35 Dose: Not Given Documented by: Home Medications Medication Instructions Recorded Confirmed Last Taken Type aripiprazole 2 mg tablet 4 mg PO DAILY 01/17/21 05/20/21 Unknown History aheioqcful-ssfbsblzkzilp-hdoqzfxp 1 - 2 cap PO DAILY PRN 01/17/21 05/20/21 Unknown History 50 mg-325 mg-40 mg capsule clonazepam 1 mg tablet 1 mg PO TID PRN 01/17/21 05/20/21 Unknown History divalproex 500 mg tablet,delayed 1,000 mg PO BID 01/17/21 05/20/21 Unknown History release donepezil 5 mg tablet 5 mg PO BEDTIME 01/17/21 05/20/21 Unknown History furosemide 20 mg tablet 20 mg PO DAILY PRN 01/17/21 05/20/21 Unknown History gabapentin 800 mg tablet 800 mg PO TID 01/17/21 05/20/21 05/20/21 History ipratropium 0.5 mg-albuterol 3 mg 3 ml INHALATION QID 01/17/21 05/20/21 05/20/21 History (2.5 mg base)/3 mL nebulization soln naproxen 500 mg tablet 500 mg PO BID 01/17/21 05/20/21 05/20/21 History omeprazole 20 mg capsule,delayed 20 mg PO DAILY@0630 01/17/21 05/20/21 05/20/21 History release topiramate 100 mg tablet 100 mg PO BID 01/17/21 05/20/21 Unknown History budesonide 3 mg 6 mg PO DAILY 05/20/21 05/20/21 Unknown History capsule,delayed,extended release cyanocobalamin (vitamin B-12) 1,000 mcg IM QMONTH 05/20/21 05/20/21 Unknown History 1,000 mcg/mL injection solution duloxetine 60 mg capsule,delayed 1 cap PO DAILY 05/20/21 05/20/21 Unknown History release elviteg 150 mg-cob 150 mg-emtricit 1 tab PO DAILY 05/20/21 05/20/21 05/20/21 History 200 mg-tenofo alafenam 10 mg tablet (Genvoya) Physical Exam Vital Signs: Vital Signs: Last Vital Signs Temp 97.3 F 05/22/21 07:26 Pulse 78 05/22/21 08:28 Resp 16 05/22/21 07:26 BP 135/76 05/22/21 07:26 Pulse Ox 98 05/22/21 07:26 Oxygen Flow Rate 4 05/20/21 16:19 Body Mass Index 32.8 Const: General: comfortable (But anxious and slightly short of breath during conversation), no acute distress, alert and awake Orientation/consciousness: patient oriented x3 HENMT: Head: Yes normal to inspection General nose exam: No nasal polyps present and No nasal discharge present Face and sinus: Yes sinuses nontender Mouth: oropharynx normal Throat: Yes posterior oropharynx normal Eyes: General: appearance normal, both eyes and all related structures Neck: Neck: Yes normal visual inspection, Yes no lymphadenopathy, Yes trachea midline and Yes no JVD Thyroid: Thyroid normal Chest: Chest palpation & inspection: normal inspection of the chest, normal palpation of entire chest wall and no tenderness Resp: Other: Breath sounds are distant with prolonged expiratory phase. Inspiratory crepitations heard over the left lower lobe, no wheezes. Cardio: Palpation: normal PMI Rate: regular rate Rhythm: regular rhythm Heart sounds: no gallops and no murmurs Peripheral pulses: Peripheral pulses 2+ throughout GI: Palpation (GI): Soft to palpation, nontender, No hepatosplenomegaly presen t and no masses Auscultation: normal bowel sounds Back/Spine/Pelvis: Thoracic/Lumbar Spine: thoracic and lumbar spine normal to inspection, thoraco-lumbar ROM limited and thoraco-lumbar spasm Skin: General skin exam: no rashes or lesions noted Neuro: General: patient oriented x3 and no focal motor deficits Cranial nerves: Yes CN's II-XII intact bilaterally Extrem: General: Yes normal to inspection, Yes no clubbing, cyanosis or edema and Yes no calf tenderness Psych: Appearance: grossly normal Speech and movement: Normal speech and movement present Results Laboratory Findings CBC and BMP: 05/22/21 05:58 05/22/21 05:58 Abnormal lab findings: Abnormal Labs 05/20/21 05/20/21 05/20/21 16:52 16:52 19:50 WBC 13.1 H MPV 9.3 L Immature Gran % (Auto) 5.0 H Abs Immat Gran (auto) 0.66 H Neutrophils % (Manual) Band Neutrophils % Lymphocytes % (Manual) Monocytes % (Manual) Abs Neuts (Manual) VBG HCO3 30 H Anion Gap BUN 19 H D Random Glucose Fasting Glucose 05/21/21 05/21/21 05/22/21 07:07 07:07 05:58 WBC 11.2 H 16.9 H MPV 9.3 L Immature Gran % (Auto) Abs Immat Gran (auto) Neutrophils % (Manual) 87 H Band Neutrophils % 2 L Lymphocytes % (Manual) 9 L Monocytes % (Manual) 1 L Abs Neuts (Manual) 10.0 H VBG HCO3 Anion Gap 10 L BUN Random Glucose 128 H Fasting Glucose 05/22/21 05:58 WBC MPV Immature Gran % (Auto) Abs Immat Gran (auto) Neutrophils % (Manual) Band Neutrophils % Lymphocytes % (Manual) Monocytes % (Manual) Abs Neuts (Manual) VBG HCO3 Anion Gap BUN 17 H Random Glucose Fasting Glucose 129 H Microbiology: Microbiology 05/20/21 18:48 Blood - Venous Blood Culture - Preliminary No growth after 24 hours. 05/20/21 18:24 Blood - Venous Blood Culture - Preliminary No growth after 24 hours. Diagnostic Findings Chest x-ray: report reviewed and image reviewed CT scan - chest: report reviewed and image reviewed Assessment and Plan (1) Acute exacerbation of chronic obstructive pulmonary disease: Status: Acute This patient with a known case of severe obstructive airway disorder. Is admitted with acute exacerbation of her symptoms. I agree with the current treatment with IV Solu-Medrol,, DuoNeb updrafts,, O2 supplementation, (2) Pneumonia: Status: Acute Patient was treated for pneumonia left lower lobe, at [facility]. Her chest x-ray and CT scan show that she has residual infiltrate, suggesting persistent pneumonia. TX: Continue azithromycin 500 mg p.o. daily for 5 days and then may reduced to 250 mg daily for another 5 days. (3) Hypoxemia: Status: Acute Her hypoxemia which she has at baseline, is currently worsened because of acute exacerbation. tX continue O2 3-4 L/minute to keep O2 sat above 90%, as she improves it can be weaned down to her baseline of 3 L/minute. (4) Smoker: Status: Acute Smoking is her main problem which will continue to aggravate her COPD. I did discuss with her that she has to quit smoking completely. Procedures Date of Service Date of Service: 05/22/21
[2021-05-22] MEDS: Divalproex Sodium 500 MG TABLET.DR 1000 MG PO ×2 (12:29→20:14)
[2021-05-22] MEDS: ARIPiprazole 2 MG TABLET 4 MG PO (12:30)
[2021-05-22] MEDS: Topiramate 100 MG TABLET PO ×2 (12:30→20:15)
[2021-05-22] MEDS: DULoxetine HCl 60 MG CAPSULE.DR PO (12:30)
--- NOTE | 2021-05-22 12:54 | P.PNIM_ITS ---
Subjective Subjective Date of Service: 05/22/21 Interval History: cc: sob interval history: still sob but improved Cardiovascular Cardiovascular: Reports no additional cardiovascular complaints Respiratory Respiratory: Reports no additional respiratory complaints Physical Exam Vital Signs: Vital Signs: Last Vital Signs Temp 97.6 F 05/22/21 12:00 Pulse 83 05/22/21 12:07 Resp 18 05/22/21 12:00 BP 143/80 H 05/22/21 12:00 Pulse Ox 98 05/22/21 12:00 Oxygen Flow Rate 4 05/20/21 16:19 Body Mass Index 32.8 General: AO X 3, no acute distress Resp: wheezing bilateral, no accessory muscles used CVS: S1,S2,RRR GI: soft, non tender, non distended Neuro: motor grossly intact, alert Psych: appropriate affect, appropriate insight Objective Data Active Medications Acetaminophen (Acetaminophen 325 Mg Tablet) 650 mg PO Q6H PRN PRN Reason: Pain, Mild (Pain Scale 1-3) Acetaminophen/Butalbital/Caffeine (Butalb/Acetamin/Caff 50/325/40 Tablet) 1 tab PO DAILY PRN PRN Reason: headache Albuterol/Ipratropium (Albuterol/Iprat 2.5/0.5mg 3 Ml Ampul.Neb) 3 ml INHALE RQID [facility] Last Admin: 05/22/21 12:06 Dose: 3 ml Documented by: BRANDT Aripiprazole (Aripiprazole 2 Mg Tablet) 4 mg PO DAILY [facility] Last Admin: 05/22/21 12:30 Dose: 4 mg Documented by: MICHAEL Azithromycin (Azithromycin 500 Mg Tablet) 500 mg PO Q24H [facility] Last Admin: 05/21/21 20:32 Dose: 500 mg Documented by: SERGEY Clonazepam (Clonazepam 1 Mg Tablet) 1 mg PO TID PRN PRN Reason: Anxiety Last Admin: 05/22/21 08:24 Dose: 1 mg Documented by: MICHAEL Cyanocobalamin (Cyanocobalamin (Vitamin B-12) 1,000 Mcg/Ml Vial) 1,000 mcg IM Q30D [facility] Last Admin: 05/21/21 08:19 Dose: Not Given Documented by: EDITH Non-Admin Reason: Patient Refused Divalproex Sodium (Divalproex Sodium 500 Mg Tablet.) 1,000 mg PO BID [facility] Last Admin: 05/22/21 12:29 Dose: 1,000 mg Documented by: MICHAEL Donepezil HCl (Donepezil Hcl 5 Mg Tablet) 5 mg PO BEDTIME [facility] Last Admin: 05/21/21 20:33 Dose: 5 mg Documented by: SERGEY Duloxetine HCl (Duloxetine Hcl 60 Mg Capsule.) 60 mg PO DAILY [facility] Last Admin: 05/22/21 12:30 Dose: 60 mg Documented by: MICHAEL Enoxaparin Sodium (Enoxaparin Sodium 40 Mg/0.4 Ml Syringe) 40 mg SUBCUT Q24H [facility] Last Admin: 05/21/21 20:31 Dose: 40 mg Documented by: SERGEY Furosemide (Furosemide 20 Mg Tablet) 20 mg PO DAILY PRN; Protocol PRN Reason: Edema Gabapentin (Gabapentin 400 Mg Capsule) 800 mg PO TID [facility] Last Admin: 05/22/21 08:16 Dose: 800 mg Documented by: MICHAEL Melatonin (Melatonin 3 Mg Tablet) 6 mg PO BEDTIME PRN PRN Reason: Insomnia Methylprednisolone Sodium Succinate (Methylprednisolone Sod Succ 125 Mg/2 Ml Vial) 60 mg IVPUSH Q8H [facility] Last Admin: 05/22/21 08:11 Dose: 60 mg Documented by: MICHAEL Morphine Sulfate (Morphine Sulfate 4 Mg/Ml Cartridge) 2 mg IVPUSH Q3H PRN; Protocol PRN Reason: Pain, SOB Last Admin: 05/22/21 12:37 Dose: 2 mg Documented by: MICHAEL Nicotine (Nicotine 14 Mg Patch.Td24) 14 mg TRANSDERMA DAILY [facility] Last Admin: 05/22/21 08:15 Dose: 14 mg Documented by: MICHAEL Non-Formulary Medication (Budesonide) 6 mg PO DAILY [facility] Non-Formulary Medication (Gesdyxc-Xkx-Mufpp-Tenof Alafen) 1 tab PO DAILY [facility] Omeprazole (Omeprazole 20 Mg Capsule.) 20 mg PO DAILY@0630 [facility] Last Admin: 05/22/21 06:30 Dose: Not Given Documented by: MARY Non-Admin Reason: Patient Asleep Pharmacy Consult (Consult Rx Perform Med Rec) 1 each MISCELLANE ONCE PRN PRN Reason: Consult order Pharmacy Consult (Consult Rx Perform Med Rec) 1 each MISCELLANE ONCE PRN PRN Reason: Consult order Senna (Sennosides 8.6 Mg Tablet) 17.2 mg PO BEDTIME PRN PRN Reason: Constipation Sodium Chloride (0.9 % Sodium Chloride Flush 3 Ml Syringe) 3 ml IVFLUSH QSHIFT [facility] Last Admin: 05/22/21 08:24 Dose: 3 ml Documented by: MICHAEL Theophylline (Theophylline Anhydrous Er 400 Mg Tab.Er.24h) 400 mg PO DAILY [facility] Last Admin: 05/22/21 08:15 Dose: 400 mg Documented by: MICHAEL Topiramate (Topiramate 100 Mg Tablet) 100 mg PO BID [facility] Last Admin: 05/22/21 12:30 Dose: 100 mg Documented by: MICHAEL Labs CBC & Chem 7: 05/22/21 05:58 05/22/21 05:58 Labs: Laboratory Results - last 24 hr 05/20/21 05/22/21 05/22/21 16:52 05:58 05:58 MCV 94.3 MCH 30.9 MCHC 32.8 RDW 13.2 Plt Count 340 MPV 9.3 L Absolute Nucleated RBC 0.000 Nucleated RBC % (auto) 0.0 Anion Gap 12 Estim Creat Clear Calc 127.9 Estimated GFR > 60 Fasting Glucose 129 H Calcium 9.2 Magnesium 2.0 Total Bilirubin < 0.2 Direct Bilirubin < 0.2 AST 12 ALT 17 Alkaline Phosphatase 83 Total Protein 6.9 Albumin 4.2 Microbiology Microbiology Results: Microbiology 05/20/21 18:48 Blood Culture - Preliminary Blood - Venous No growth after 24 hours. 05/20/21 18:24 Blood Culture - Preliminary Blood - Venous No growth after 24 hours. Assessment and Plan (1) Supplemental oxygen dependent: Status: Acute (2) COPD (chronic obstructive pulmonary disease): Status: Acute Assessment and Plan: 51F presented with sob Acute on chronic hypoxic respiratory failure secondary to COPD exacerbation continue steroids, bronchodilators, pulmonary following azithromycin, theophylline CTA chest negative for pe anxiety/depression Continue home clonazepam/duloxetine. HIV Continue home Genvoya epilepsy Depakote, topiramate.? Seizure precautions. dvt prophylaxis - lovenox Quality Stroke Does the patient have a stroke diagnosis?: No VTE Prior VTE?: No VTE Risk Level:: Medical - moderate - high VTE Device Contraindication: Treatment Not Indicated VTE Drug Contraindication: N/A - Med Ordered
[2021-05-22] MEDS: Azithromycin 500 MG TABLET PO (20:14)
[2021-05-22] MEDS: Enoxaparin Sodium 40 MG/0.4 ML SYRINGE SUBCUT (20:15)
[2021-05-22] MEDS: Donepezil HCl 5 MG TABLET PO (20:15)
[2021-05-23] MEDS: Morphine Sulfate 4 MG/ML CARTRIDGE 2 MG IVPUSH ×3 (00:38→09:37)
[2021-05-23] MEDS: 0.9 % Sodium Chloride Flush 3 ML SYRINGE IVFLUSH ×2 (00:38→09:43)
[2021-05-23] MEDS: methylPREDNISolone Sod Succ 125 MG/2 ML VIAL 60 MG IVPUSH ×2 (01:56→09:36)
[2021-05-23 03:24] VITALS: BP 121/64; PULSE 62; RESP 17; TEMP 36.6; O2SAT 96
[2021-05-23] MEDS: Omeprazole 20 MG CAPSULE.DR PO (06:09)
[2021-05-23] MEDS: Albuterol/Iprat 2.5/0.5MG 3 ML AMPUL.NEB INHALE (07:17)
[2021-05-23 07:18] VITALS: BP 102/70; PULSE 59; PULSE 80; RESP 18; TEMP 36; O2SAT 95; O2SAT 97
--- NOTE | 2021-05-23 08:54 | P.DS_ITS ---
DS: Providers Provider Date of Service: 05/23/21 Date of admission: 05/20/21 19:20 Primary care physician: [facility] Consults: 05/20/21 19:19 Consult to Pulmonology Routine Consulting Provider: José Miguel Landaverde Reason for consultation: Rec COPD exacerbation DS: Diagnosis Discharge Diagnosis (1) Acute exacerbation of chronic obstructive pulmonary disease: Status: Acute (2) Hypoxemia: Status: Acute (3) Smoker: Status: Acute DS: Summary Hospital Course Hospital Course: Patient was admitted for acute on chronic hypoxic respiratory due to COPD exacerbation. She was treated with IV methylprednisolone and inhaled bronchodilators. she was also treated with azithromycin. LLL opacity is residual infiltrate from previously treated pneumonia. she is now feeling much better and will be discharged home on decadron and azithro. she should follow up with pulmonary as outpatient and quit smoking. Time Spent with Patient Time attestation: Total time spent providing and/or coordinating discharge services: Discharge coordination time: Greater than 30 minutes Quality: Stroke Does the patient have a stroke diagnosis?: No Physical Exam Vital Signs: Vital Signs: Last Vital Signs Temp 96.8 F 05/23/21 07:18 Pulse 59 05/23/21 07:18 Resp 18 05/23/21 07:18 BP 102/70 05/23/21 07:18 Pulse Ox 97 05/23/21 07:18 Oxygen Flow Rate 4 05/20/21 16:19 Body Mass Index 32.8 General: AO X 3, no acute distress Resp:? wheezing bilateral, no accessory muscles used CVS: S1,S2,RRR GI: soft, non tender, non distended Neuro:? motor grossly intact, alert Psych: appropriate affect, appropriate insight? DS: Data Data Completed and Pending Labs on day of discharge: Preliminary micro results at discharge 05/20/21 18:48 Blood Culture - Preliminary Blood - Venous No growth after 48 hours. 05/20/21 18:24 Blood Culture - Preliminary Blood - Venous No growth after 48 hours. Discharge Plan Discharge Patient Disposition: Home, Self-Care Discharge Diagnosis: copd Referrals: [place] [place] [Primary Care Provider] - 1 Week José Miguel Landaverde MD [Physician] - 1 Week Discharge Medications: New dexamethasone 4 mg tablet 4 mg PO DAILY Qty: 7 RF: 0 Continued duloxetine 60 mg capsule,delayed release(DR/EC) 1 cap PO DAILY RF: 0 Genvoya [phone] mg tablet 1 tab PO DAILY RF: 0 cyanocobalamin (vitamin B-12) 1,000 mcg/mL Solution 1,000 mcg IM QMONTH RF: 0 budesonide 3 mg capsule,delayed,extend.release 6 mg PO DAILY RF: 0 clonazepam 1 mg tablet 1 mg PO TID PRN (Reason: Anxiety) RF: 0 gwgxxsbymv-raptuuvnwnvqy-vkzx 50-325-40 mg capsule 1 - 2 cap PO DAILY PRN (Reason: headache) RF: 0 furosemide 20 mg tablet 20 mg PO DAILY PRN (Reason: Edema) RF: 0 omeprazole 20 mg capsule,delayed release(DR/EC) 20 mg PO DAILY@0630 RF: 0 aripiprazole 2 mg tablet 4 mg PO DAILY RF: 0 topiramate 100 mg tablet 100 mg PO BID RF: 0 divalproex 500 mg tablet,delayed release (DR/EC) 1,000 mg PO BID RF: 0 ipratropium-albuterol 0.5 mg-3 mg(2.5 mg base)/3 mL solution for nebulization 3 ml inhalation QID RF: 0 naproxen 500 mg tablet 500 mg PO BID RF: 0 gabapentin 800 mg tablet 800 mg PO TID RF: 0 donepezil 5 mg tablet 5 mg PO BEDTIME RF: 0 theophylline 400 mg tablet extended release 24 hr 400 mg PO DAILY 30 Days Qty: 30 RF: 6 Discharge Orders: Discharge Order (Routine); Ordered 05/23/21 Ordered By: Barney Mejia Diet: advance to usual diet Activity on Discharge: As tolerated Stand Alone Forms: Patient Portal Discharge page Care Plan Goals: avoid hospitalizations Health Concerns: copd Plan of Treatment: decadron, follow up with pulm Assessment: see above
--- NOTE | 2021-05-23 09:01 | MHC.CM.PN ---
PATIENT IS DISCHARGED HOME WITH RESUMPTION OF SERVICES. RN AWARE OF PLAN.
[2021-05-23] MEDS: Nicotine 14 MG PATCH.TD24 TRANSDERMA (09:36)
[2021-05-23] MEDS: DULoxetine HCl 60 MG CAPSULE.DR PO (09:40)
[2021-05-23] MEDS: ARIPiprazole 2 MG TABLET 4 MG PO (09:40)
[2021-05-23] MEDS: Gabapentin 400 MG CAPSULE 800 MG PO (09:40)
[2021-05-23] MEDS: Topiramate 100 MG TABLET PO (09:40)
[2021-05-23] MEDS: Theophylline Anhydrous ER 400 MG TAB.ER.24H PO (09:40)
[2021-05-23] MEDS: Divalproex Sodium 500 MG TABLET.DR 1000 MG PO (09:41)
== END 2021-05-23 10:41 | disposition home or self-care (01) | DRG 140 ==
LOC: HO.ED 19:11 → HO.EDOVER 19:27 → HO.S3 05-21 15:44
PROVIDERS: Physician Assistant; Admitting Provider Hospitalist; Emergency Provider Internal Medicine; PCP Physician Assistant Medical; Visit Provider Internal Medicine
DX: J44.0 Chronic obstructive pulmonary disease with (acute) lower respiratory infection (principal); J96.21 Acute and chronic respiratory failure with hypoxia; J18.9 Pneumonia, unspecified organism; Z99.81 Dependence on supplemental oxygen; F17.210 Nicotine dependence, cigarettes, uncomplicated; F43.10 Post-traumatic stress disorder, unspecified; Z20.822 Contact with and (suspected) exposure to COVID-19; F41.9 Anxiety disorder, unspecified; F32.9 Major depressive disorder, single episode, unspecified; G40.909 Epilepsy, unspecified, not intractable, without status epilepticus; G89.29 Other chronic pain; J44.1 Chronic obstructive pulmonary disease with (acute) exacerbation; Z21 Asymptomatic human immunodeficiency virus [HIV] infection status; Z71.6 Tobacco abuse counseling; Z96.82 Presence of neurostimulator; Z88.6 Allergy status to analgesic agent; Z79.1 Long term (current) use of non-steroidal anti-inflammatories (NSAID); Z79.899 Other long term (current) drug therapy
CPT/HCPCS: 36415; 71045; 71275; 80048; 80076; 82803; 83605; 83735; 83880; 84484; 85007; 85025; 85027; 87040; 87635; 93005; 94640; 99285; J1650; J2270; J2543; J2930; J3475; Q9967

== ENCOUNTER → 2021-05-29 08:38 | Outpatient (BNVA) | payer OTHER, SELFPAY | PROVIDERS: PCP Physician Assistant Medical; Visit Provider Internal Medicine Pulmonary Disease | DX: J44.9 Chronic obstructive pulmonary disease, unspecified (principal); R06.00 Dyspnea, unspecified; R00.0 Tachycardia, unspecified; Z99.81 Dependence on supplemental oxygen | CPT/HCPCS: 99212 ==

== ENCOUNTER → 2021-06-12 12:34 | Outpatient (BNVA) | payer OTHER, SELFPAY | PROVIDERS: PCP Physician Assistant Medical; Referring Provider Physician Assistant Medical; Visit Provider Internal Medicine Cardiovascular Disease | DX: J44.9 Chronic obstructive pulmonary disease, unspecified (principal); R00.0 Tachycardia, unspecified; R06.00 Dyspnea, unspecified; F17.200 Nicotine dependence, unspecified, uncomplicated | CPT/HCPCS: 93005; 99212 ==

== ENCOUNTER 2021-07-07 08:43 | Outpatient (REF) | payer OTHER, SELFPAY ==
--- NOTE | 2021-07-07 10:40 | PFT_ITS ---
Forced vital capacity moderately decreased. FEV1, [id number], and MVV are markedly decreased. Post bronchodilator therapy, there is no significant change. Total lung capacity and residual volume normal. Diffusion capacity is markedly decreased. CONCLUSION: Severe obstructive airway disorder. No significant response to bronchodilator therapy. Clinical correlation is recommended. MD BLAYNE Koenig/DERBA / [phone]
== END 2021-07-07 08:44 | disposition home or self-care (01) ==
LOC: HO.RESP 08:43
PROVIDERS: PCP Physician Assistant Medical; Visit Provider Internal Medicine Pulmonary Disease
DX: R06.00 Dyspnea, unspecified (principal)
CPT/HCPCS: 94060; 94727; 94729

== ENCOUNTER → 2021-08-12 11:19 | Outpatient (BNVA) | payer OTHER, SELFPAY | PROVIDERS: PCP Physician Assistant Medical; Visit Provider Internal Medicine Pulmonary Disease | DX: J44.9 Chronic obstructive pulmonary disease, unspecified (principal); R06.00 Dyspnea, unspecified; R60.0 Localized edema; Z99.81 Dependence on supplemental oxygen | CPT/HCPCS: 99212 ==

== ENCOUNTER 2021-08-15 16:39 | Emergency (ER) | payer OTHER, SELFPAY ==
--- NOTE | ~2021-08-15 | XR_ITS ---
EXAMINATION: XR CHEST CLINICAL INFORMATION: Shortness of breath. COMPARISON: Chest radiograph dated from 05/20/2021. TECHNIQUE: 2 views of the chest were obtained. FINDINGS: Stable appearance of the cardiomediastinal silhouette with similar positioning of a neurostimulator device. Increased hazy airspace opacities in the lower lungs with redemonstration of a background of similar somewhat linear opacities in the left lower lobe. Increased small bilateral pleural effusions. No acute osseous abnormalities. XR/XR chest 2V IMPRESSION: Worsening pulmonary aeration with increased hazy opacities in the lower lungs. These are indeterminate and could be related with an infectious or inflammatory process in the appropriate clinical context.
[2021-08-15 18:03] VITALS: BP 139/87; PULSE 103; RESP 18; TEMP 36.6; O2SAT 97; BMI 34.9
[2021-08-15 18:59] LABS: Hemoglobin 9.2 g/dl (12.0-16.0); Mean Corpuscular HGB Conc 32.9 g/dl (31.0-35.0); Mean Corpuscular Hemoglobin 32.3 pg (27.0-33.0); Mean Corpuscular Volume 98.2 fL (80.0-98.0); Mean Platelet Volume 9.4 fL (9.4-12.3); Platelet Count 272 X10*3/uL (160-400); Red Blood Count 2.85 X10*6/uL (4.20-5.50); White Blood Count 16.3 X10*3/uL (4.8-10.8)
[2021-08-15 19:01] LABS: NRBC Pct Auto 3.7 /100WBC (0.0-0.2)
[2021-08-15 19:09] LABS: COVID-19 Test Positive (Negative)
[2021-08-15 19:16] LABS: Alanine Aminotransferase 57 U/L (0-31); Albumin Level 3.4 g/dL (3.5-5.0); Alkaline Phosphatase 110 U/L (39-117); Anion Gap 14 (12-20); Aspartate Amino Transferase 22 U/L (5-31); Bilirubin Total < 0.2 mg/dL (0.0-1.0); Blood Urea Nitrogen 15 mg/dL (9-16); Calcium 8.7 mg/dL (8.4-10.2); Carbon Dioxide 29 mmol/L (22-29); Chloride 101 mmol/L (96-108); Creatinine Clr Calc Pharmacy 136.3; Estimated Glomerular Filt Rate > 60; Glucose Random 94 mg/dL (60-115); Potassium 3.5 mmol/L (3.3-5.1); Sodium 140 mmol/L (135-145); Total Protein 6.2 g/dL (6.5-8.0)
[2021-08-15 19:20] LABS: B Type Natriuretic Peptide 13 pg/mL (<100); Troponin-I High Sensitivity 9.9 ng/L (<3.5-17.0)
[2021-08-15 19:42] LABS: Band Neutrophils Percent 12 % (3-5); Lymphocytes Absolute Manual 0.8 X10*3/uL (1.2-4.9); Lymphocytes Percent Manual 5 % (20-40); Metamyelocytes Absolute 0.5 X10*3/uL; Metamyelocytes Percent 3 %; Monocytes Absolute Manual 0.3 X10*3/uL (0.1-1.2); Monocytes Percent Manual 2 % (2-11); Myelocytes Absolute 0.7 X10*/uL; Myelocytes Percent 4 %; Neutrophils Percent Manual 74 % (45-73); Nucleated Red Blood Cells 4 /100WBC (0-0); RBC Morphology NOTED
[2021-08-15 19:44] LABS: Polychromasia 1+ (0-2) /OIF
[2021-08-15 19:45] LABS: Platelet Estimate NORMAL (NORMAL); Platelet Morphology Comment NORMAL
== END 2021-08-15 19:27 | disposition left against medical advice (07) ==
PROVIDERS: Emergency Provider Emergency Medicine; PCP Physician Assistant Medical
DX: U07.1 COVID-19 (principal); R06.02 Shortness of breath; F17.200 Nicotine dependence, unspecified, uncomplicated
CPT/HCPCS: 71046; 80053; 83880; 84484; 85007; 85025; 85027; 87635; 99281; 99283

== ENCOUNTER → 2021-10-21 09:29 | Outpatient (BNVA) | payer OTHER, SELFPAY | PROVIDERS: PCP Physician Assistant Medical; Visit Provider Internal Medicine Pulmonary Disease | DX: R06.00 Dyspnea, unspecified (principal); J44.9 Chronic obstructive pulmonary disease, unspecified; Z99.81 Dependence on supplemental oxygen | CPT/HCPCS: 99212 ==

== ENCOUNTER → 2021-10-22 11:11 | Outpatient (REF) | payer OTHER, SELFPAY ==
--- NOTE | 2021-10-22 11:18 | HM_ITS ---
* Total monitoring time 1 day and 3 hours. * Underlying rhythm is sinus. Average rate 95/Min; range 78 to 134/Min. * No atrial fibrillation or flutter or AV blocks or pauses. * Frequent supraventricular ectopy; burden of 3.2%; mostly isolated. Transient runs. * Rare ventricular ectopy. * No patient events. MTDD
== END ==
LOC: HO.CARD 11:11
PROVIDERS: PCP Physician Assistant Medical; Visit Provider Internal Medicine Cardiovascular Disease
DX: R00.0 Tachycardia, unspecified (principal)
CPT/HCPCS: 93242

== ENCOUNTER → 2021-10-23 15:20 | Outpatient (BNVA) | payer OTHER, SELFPAY | PROVIDERS: PCP Physician Assistant Medical; Referring Provider Physician Assistant Medical; Visit Provider Nurse Practitioner Family | DX: Z09 Encounter for follow-up examination after completed treatment for conditions other than malignant neoplasm (principal); I42.9 Cardiomyopathy, unspecified; R00.0 Tachycardia, unspecified | CPT/HCPCS: 99212 ==

== ENCOUNTER → 2022-02-20 10:24 | Outpatient (BNVA) | payer OTHER, SELFPAY | PROVIDERS: PCP Physician Assistant Medical; Visit Provider Internal Medicine Pulmonary Disease | DX: J44.9 Chronic obstructive pulmonary disease, unspecified (principal); R60.0 Localized edema; F17.210 Nicotine dependence, cigarettes, uncomplicated; Z79.899 Other long term (current) drug therapy; Z99.81 Dependence on supplemental oxygen | CPT/HCPCS: 99212 ==

== ENCOUNTER → 2022-02-26 10:04 | Outpatient (BNVA) | payer OTHER, SELFPAY | PROVIDERS: PCP Physician Assistant Medical; Visit Provider Internal Medicine Pulmonary Disease | DX: J44.9 Chronic obstructive pulmonary disease, unspecified (principal); R06.00 Dyspnea, unspecified; Z99.81 Dependence on supplemental oxygen; Z79.899 Other long term (current) drug therapy | CPT/HCPCS: 99212 ==